=== PATIENT | female | born 1935 | race Caucasian/White ===

== ENCOUNTER 2020-07-15 08:41 | Outpatient (CLI) | payer MEDICARE, OTHER, SELFPAY ==
--- NOTE | 2020-07-15 09:06 | NM_ITS ---
WS: [id number] NUCLEAR MEDICINE WHOLE BODY BONE SCAN HISTORY: BONE PAIN/?CANCER COMPARISON: None available. TECHNIQUE: The patient was injected with 26.1 mCi of Technetium 99m HDP and serial whole-body scintig jason have been performed with anterior and posterior images. Severe bilateral degenerative changes at the knees. Increased uptake at the knee joints with bony hyp ertrophy. Additional bilateral symmetric moderate increased uptake at the ankle joints. Mild bilatera l sternoclavicular and AC joint arthritis. No increased activity with within the ribs or spine. There is mild scoliosis of the thoracolumbar spine with LEFT lumbar curvature. Normal soft tissue uptake and normal renal uptake. NM/NM bone scan whole body* [id number] IMPRESSION: 1. Changes of osteoarthritis. Most significant at the knees bilaterally. 2. Moderate osteoarthritic changes at the ankle joints, AC joints and SC joint s. 3. No metastatic disease.
== END 2020-07-15 08:42 | disposition home or self-care (01) ==
LOC: NM 08:41
PROVIDERS: PCP Family Medicine; Visit Provider Family Medicine
DX: M89.8X9 Other specified disorders of bone, unspecified site (principal); M17.0 Bilateral primary osteoarthritis of knee
CPT/HCPCS: 78306; A9561

== ENCOUNTER → 2021-03-18 09:11 | Outpatient (BNVA) | payer MEDICARE, OTHER, SELFPAY | PROVIDERS: PCP Family Medicine; Referring Provider Family Medicine; Visit Provider Specialist | DX: M25.511 Pain in right shoulder (principal); M25.512 Pain in left shoulder; M19.011 Primary osteoarthritis, right shoulder | CPT/HCPCS: 73030 ==

== ENCOUNTER 2021-06-17 06:08 | Inpatient (IN) | payer MEDICARE, OTHER, SELFPAY ==
[2021-06-17] VITALS (12 sets, daily range): BP systolic 122–161; BP diastolic 70–94; PULSE 80–101; RESP 16–26; TEMP 36.4–36.7; O2SAT 92–98; BMI 30.9
[2021-06-17] MEDS: sodium chloride 0.9% 1,000 ML 999 ML IV (06:15)
[2021-06-17 06:30] LABS: Basophils # 0.1 10^3/uL (0.0-0.1); Basophils % 1.1 %; Eosinophils # 0.1 10^3/uL (0.0-0.8); Eosinophils % 0.8 %; Hemoglobin 12.4 g/dL (11.5-15.3); Lymphocytes % 8.9 %; Mean Corpuscular Hemoglobin 28.4 pg (28.0-34.0); Mean Corpuscular Volume 91.5 fL (81-99); Mean Platelet Volume 10.1 fL (7.4-10.4); Monocytes # 0.7 10^3/uL (0.2-0.9); Monocytes % 6.1 %; Neutrophils # 9.39 10^3/uL (1.8-7.7); Neutrophils % 82.9 %; Nucleated Red Blood Cells % 0 %; Platelet Count 440 10^3/cmm (130-400); Red Blood Count 4.37 10^6/uL (4.1-5.3); Red Cell Distribution Width 17.5 % (12.1-15.1); White Blood Count 11.3 10^3/uL (4.0-10.0)
--- NOTE | 2021-06-17 06:33 | ED_ITS ---
HPI - Abdominal Pain General: Chief Complaint: Abdominal Pain Stated Complaint: N/V Time Seen by Provider: 06/17/21 06:21 History of Present Illness: HPI narrative: 86-year-old female presents emergency room with complaint of nausea vomiting that started overnight. Her last bowel movement was yesterday at noon she said it was rather large and difficult to pass. She denies any bloody bowel movements not any hematemesis. She has had problems with bowel obstructions in the past. She describes a lot of what she had overnight is like a heartburn feeling along with the vomiting. She is been given Zofran in route has not had any further vomiting tells me now her nausea is fairly well controlled. She has previously had bowel obstructions that have been treated conservatively and resolved she has not had to have any surgical intervention. No recent fever sweats chills denies chest pain shortness of breath no dysuria urgency or frequency MD elicited complaint: abdominal pain Pertinent past history: other (Bowel obstruction) Onset (ago): hour(s) Pain Consistency: constant Location: Diffuse Quality: cramping Radiation: none Exacerbating factors: nothing Relieving factors: nothing Associated Symptoms: Reports GI cramping, dyspepsia and poor appetite; Denies anorexia, belching, bloating, change in bowel habits, change in stool character, chills, coffee ground emesis, constipation, diarrhea, dysuria, excessive flatus, hematochezia, hematuria, hematemesis, fecal incontinence, loose stools, melena, nausea, syncope and vomiting Review of Systems Const: Denies: chills ENMT: Denies: throat pain, ear or mastoid pain, nasal discharge or nasal congestion Card: Denies: syncope Resp: Denies: dyspnea, productive cough or non-productive cough GI: Reports: GI cramping; Denies: nausea, vomiting, hematemesis, coffee ground emesis, diarrhea, constipation, bloating, belching, excessive flatus, fecal incontinence, change in bowel habits, change in stool character, hematochezia or melena : Denies: dysuria or hematuria Skin/Breast: Denies: rash or pruritus [facility] ED PFSH: Medical History DJD (degenerative joint disease) /Arthritis GERD (gastroesophageal reflux disease) History of small bowel obstruction Hypertension Hypothyroidism Surgical History History of appendectomy (incidental at the time of cholecystectomy) History of bladder suspension procedure History of cholecystectomy History of hernia repair X 2 (mesh used - [place], [place]) History of hysterectomy / BSO Family History Other Hypertension Social History Smoking and tobacco status: never smoked Alcohol intake: never Physical Exam Const: COMMON NORMALS: no acute distress GENERAL APPEARANCE: cooperative and comfortable ORIENTATION/CONSCIOUSNESS: Yes awake, Yes oriented to person, Yes oriented to place and Yes oriented to time HENMT: COMMON NORMALS: normocephalic, atraumatic and hearing grossly normal bilaterally HEAD & SCALP: normocephalic and atraumatic Neck/C-Spine: COMMON NORMALS: no JVD Lymph: LYMPHATIC: no lymphedema noted Resp: COMMON NORMALS: normal respiratory effort, No retractions, No use of accessory muscles and clear to auscultation bilaterally AUSCULTATION: clear to auscultation bilaterally Cardio: COMMON NORMALS: no JVD, regular rate, regular rhythm and No murmurs present (Cardio) RATE: regular rate RHYTHM: regular rhythm GI: COMMON NORMALS: Soft to palpation and No hepatosplenomegaly present AUSCULTATION: Yes Hypoactive bowel sounds present PALPATION: Yes Soft to palpation, No Tenderness to palpation present (GI), No Guarding due to palpation present (GI) and Yes No hepatosplenomegaly present Extremity: COMMON NORMALS: normal to inspection, capillary refill normal, no clubbing, cyanosis or edema, no calf tenderness and no pedal edema Neuro: SENSORIUM/ORIENTATION: Yes oriented to person, Yes oriented to place and Yes oriented to time Skin: COMMON NORMALS: no rashes or lesions noted GENERAL SKIN EXAM: no rashes or lesions noted Course Vital Signs: Vital signs: Vital Signs Temperature 97.8 F 06/17/21 12:15 Pulse Rate 96 06/17/21 12:15 Respiratory Rate 24 H 06/17/21 12:15 Blood Pressure 161/94 06/17/21 12:15 Pulse Oximetry 96 06/17/21 12:15 MDM - Abdominal Pain MDM Narrative: Medical decision making narrative: CT shows bowel obstruction.discussed with Dr. Camejo he will admit patient as per medical consult discussed Dr. Abad orders have been written. Lab Data: Labs: Lab Results 06/17/21 06/17/21 06/17/21 Range/Units 06:00 06:00 06:00 WBC 11.3 H (4.0-10.0) 10^3/ uL RBC 4.37 (4.1-5.3) 10^6/u L Hgb 12.4 (11.5-15.3) g/dL Hct 40.0 (37.0-47.0) % MCV 91.5 (81-99) fL MCH 28.4 (28.0-34.0) pg MCHC 31.0 (30.0-36.0) g/dL RDW 17.5 H (12.1-15.1) % Plt Count 440 H (130-400) 10^3/c mm MPV 10.1 (7.4-10.4) fL Neut % (Auto) 82.9 % Lymph % (Auto) 8.9 % [place] % (Auto) 6.1 % Eos % (Auto) 0.8 % Baso % (Auto) 1.1 % Neut # (Auto) 9.39 H (1.8-7.7) 10^3/u L Lymph # (Auto) 1.0 (0.8-4.8) 10^3/u L [place] # (Auto) 0.7 (0.2-0.9) 10^3/u L Eos # (Auto) 0.1 (0.0-0.8) 10^3/u L Baso # (Auto) 0.1 (0.0-0.1) 10^3/u L Nucleated RBC % (a uto) 0 % Nucleated RBCs # 0.0 /100WBC Sodium 140 (136-145) mmol/L Potassium 4.0 (3.5-5.1) mmol/L Chloride 97 L (98-107) mmol/L Carbon Dioxide 32 H (22-29) mmol/L Anion Gap 15.0 (5-19) BUN 25 H (8-23) mg/dL Creatinine 0.6 (0.5-0.9) mg/dL GFR Calculation Not Reportable Glucose 144 H (65-115) mg/dL Calculated Osmolal ity 297 H (285-295) mOsm/k g Calcium 9.6 (8.5-10.5) mg/dL Total Bilirubin 0.4 (0.15-1.2) mg/dL AST 60 H (0-32) U/L ALT 56 H (0-33) U/L Alkaline Phosphata se 87 (35-105) IU/L Total Protein 7.3 (6.6-8.7) g/dL Albumin 4.1 (3.5-5.2) g/dL Globulin 3.2 (1.3-4.6) g/dL Lipase 18 (13-60) U/L TSH 5.16 H (0.27-4.20) uIU/ mL Urine Color (Yellow) Urine Appearance (CLEAR) Urine pH (5-7) Ur Specific Gravit y (1.005-1.030) Urine Protein (Negative) Urine Glucose (UA) (Normal) Urine Ketones (Negative) Urine Blood (Negative) Urine Nitrate (Negative) Urine Bilirubin (Negative) Urine Urobilinogen (Negative) mg/dL Ur Leukocyte Silke ase (Negative) Urine RBC (0-2) /hpf Urine WBC (0-5) /hpf Ur Squamous Epith Cells (0-5) /hpf Amorphous Sediment Urine Bacteria (NONE) /hpf 07/21/21 Range/Units 07:21 WBC (4.0-10.0) 10^3/ uL RBC (4.1-5.3) 10^6/u L Hgb (11.5-15.3) g/dL Hct (37.0-47.0) % MCV (81-99) fL MCH (28.0-34.0) pg MCHC (30.0-36.0) g/dL RDW (12.1-15.1) % Plt Count (130-400) 10^3/c mm MPV (7.4-10.4) fL Neut % (Auto) % Lymph % (Auto) % [place] % (Auto) % Eos % (Auto) % Baso % (Auto) % Neut # (Auto) (1.8-7.7) 10^3/u L Lymph # (Auto) (0.8-4.8) 10^3/u L [place] # (Auto) (0.2-0.9) 10^3/u L Eos # (Auto) (0.0-0.8) 10^3/u L Baso # (Auto) (0.0-0.1) 10^3/u L Nucleated RBC % (a uto) % Nucleated RBCs # /100WBC Sodium (136-145) mmol/L Potassium (3.5-5.1) mmol/L Chloride (98-107) mmol/L Carbon Dioxide (22-29) mmol/L Anion Gap (5-19) BUN (8-23) mg/dL Creatinine (0.5-0.9) mg/dL GFR Calculation Glucose (65-115) mg/dL Calculated Osmolal ity (285-295) mOsm/k g Calcium (8.5-10.5) mg/dL Total Bilirubin (0.15-1.2) mg/dL AST (0-32) U/L ALT (0-33) U/L Alkaline Phosphata se (35-105) IU/L Total Protein (6.6-8.7) g/dL Albumin (3.5-5.2) g/dL Globulin (1.3-4.6) g/dL Lipase (13-60) U/L TSH (0.27-4.20) uIU/ mL Urine Color Yellow (Yellow) Urine Appearance Cloudy (CLEAR) Urine pH 7 (5-7) Ur Specific Gravit y 1.005 (1.005-1.030) Urine Protein Neg (Negative) Urine Glucose (UA) Norm (Normal) Urine Ketones Negative (Negative) Urine Blood Neg (Negative) Urine Nitrate Positive H (Negative) Urine Bilirubin Neg (Negative) Urine Urobilinogen 1 H (Negative) mg/dL Ur Leukocyte Silke ase Negative (Negative) Urine RBC 0-4 H (0-2) /hpf Urine WBC 10-15 H (0-5) /hpf Ur Squamous Epith Cells 5-10 H (0-5) /hpf Amorphous Sediment Not Reportable Urine Bacteria 3+ H (NONE) /hpf Discharge Plan Discharge Patient Disposition: Admitted As Inpatient Clinical Impression: Small bowel obstruction, GERD (gastroesophageal reflux disease), Morbid obesity with BMI of 40.0-44.9, adult, Hypertension Condition: Stable Prescriptions: No Action ferrous sulfate 325 mg (65 mg iron) tablet 325 mg PO BID RF: 0 lisinopril-hydrochlorothiazide 20-12.5 mg tablet 1 tab PO BID RF: 0 levothyroxine 75 mcg Tablet 75 mcg PO QAM RF: 0 [place] 7.5-325 mg Tablet 1 tab PO BEDTIME RF: 0 Prilosec OTC 20 mg Tablet,Delayed Release (Dr/Ec) 20 mg PO DAILY RF: 0 Referrals: Mk Agudelo MD [Primary Care Provider] - Coding Level of Care Code ED Infrastructure Technician for Chg Fwd Exam Comprehensive
[2021-06-17 06:58] LABS: Alanine Aminotransferase 56 U/L (0-33); Albumin Level 4.1 g/dL (3.5-5.2); Alkaline Phosphatase 87 IU/L (35-105); Aspartate Amino Transferase 60 U/L (0-32); Blood Urea Nitrogen 25 mg/dL (8-23); Calcium 9.6 mg/dL (8.5-10.5); Carbon Dioxide 32 mmol/L (22-29); Chloride 97 mmol/L (98-107); Creatinine Clr Calc Pharmacy 52.1784; Globulin 3.2 g/dL (1.3-4.6); Glucose 144 mg/dL (65-115); Osmolality Calculated 297 mOsm/kg (285-295); Sodium 140 mmol/L (136-145); Total Bilirubin 0.4 mg/dL (0.15-1.2); Total Protein 7.3 g/dL (6.6-8.7)
[2021-06-17 07:57] LABS: Add Urine Microscopic? YES; Bilirubin Urine Neg (Negative); Blood Urine Neg (Negative); Glucose Urine UA Norm (Normal); Ketones Urine Negative (Negative); Leukocyte Esterase Urine Negative (Negative); Nitrate Urine Positive (Negative); Protein Urine Neg (Negative); RBC Urine 0-4 /hpf (0-2); Specific Gravity, Urine 1.005 (1.005-1.030); Urine Appearance Cloudy (CLEAR); Urine Color Yellow (Yellow); Urobilinogen Urine 1 mg/dL (Negative); pH Urine 7 (5-7)
[2021-06-17 07:58] LABS: Add Urine Culture? Yes; Bacteria Urine 3+ /hpf
--- NOTE | 2021-06-17 08:43 | CT_ITS ---
WS: [id number] CT ABDOMEN AND PELVIS WITH CONTRAST HISTORY: Abdominal pain. Bowel obstruction history. TECHNIQUE: Imaging performed of the abdomen and pelvis with IV contrast. Single phase imaging of the abdomen. Coronal and sagittal reformats are submitted. All CT scans at [facility] use at least one of these dose optimization techniques: automated exposure control; mA and/or kV adjustment per patient size (includes targeted exams where dose is matched to clinical indication); or iterativ e reconstruction. IV CONTRAST: Omnipaque 300; 95 mL IV. Oral contrast: No DLP: 3396.48 mGy.cm COMPARISON: 01/04/2019 Lower thorax: Bilateral lower lobe granuloma. Mild enlargement of the heart. Small hiatal hernia. Liver/biliary system: Normal size with no intrahepatic dilatation. Gallbladder: Prior cholecystectomy. No bile duct dilatation. Pancreas: Normal size pancreas and pancreatic duct. No adjacent inflammation. Spleen: Normal size spleen. No mass or infarct. Adrenal glands: Normal. Right kidney: Mild cortical atrophy. No obstruction. Exophytic 1.0 cm cyst from the anterior kidney. There is a calcification in the upper abdomen of bowel but I believe this is probably a venous calcif ication and not within the ureter. Left kidney: Exophytic 8 mm cyst from the lower pole. No obstruction. Aorta: Mild atherosclerosis with no aneurysm. Lymphadenopathy: None. Free fluid: None. GI tract: Moderate dilatation of the mid to distal small bowel loops measuring up to 3.3 cm in diamet er. There is some hyperemia and changing caliber of the wall of small bowel loops in the RIGHT lower quadrant. This is closely associated with the prior surgical site and hernia repair in the RIGHT lowe r quadrant. May be some adhesions. No pneumatosis or free air at this time. No abscess. The colon is negative. Abdominal wall: Extensive prior abdominal wall hernia repair. Pelvis: Prior hysterectomy. No pelvic mass. No adenopathy. Bones: Degenerative scoliosis of the lumbar spine. CT/CT abdomen pelvis w con* [id number] IMPRESSION: 1. Moderate mid to distal small bowel obstruction. There is a changing caliber and wall thickening and hyperemia in the RIGHT lower quadrant small bowel. Thi s area of abnormality is closely associated with the prior abdominal wall herni a repair may be due to adhesions. 2. Prior hysterectomy and cholecystectomy. 3. No ascites.
[2021-06-17] MEDS: iohexol 300 mg/mL 100 mL Btl IV (09:12)
--- NOTE | 2021-06-17 10:54 | PM.CONSULT ---
Providers/Reason For Consult Consulting Physician/Specialty*: Deon Sorto MD, hospitalist Reason for Consult*: Medical management Primary Care Provider: Mk Agudelo MD History of Present Illness History of Present Illness Mckenna Nava is a 86 year old female that presents with nausea and vomiting since late last night. She has had abdominal fullness but not necessarily pain. No recent fevers. Past history of bowel obstruction that responded to conservative measurements. No fever. Denies any history of Covid, exposure or vaccine for it. She reports her last bowel movement was yesterday and hard. Does not remember any recent colonoscopy. No blood in stool, blood in emesis, or black or tarry stools. No dysuria. Review of Systems General: Reports: 10 or more systems reviewed and unremarkable except in HPI and below Const: Denies: fever(s) Eyes: Denies: change in vision ENMT: Denies: throat pain Meds/Allergies Home Medications and Allergies Home Medications Medication Instructions Recorded Confirmed Last Taken Type ferrous sulfate 325 mg (65 mg 325 mg PO DAILY 03/18/21 03/18/21 Unknown History iron) tablet hydrocodone 7.5 mg-ibuprofen 200 1 tab PO Q6H PRN 03/18/21 03/18/21 Unknown History mg tablet levothyroxine 75 mcg capsule 75 mcg PO DAILY 03/18/21 03/18/21 Unknown History lisinopril 20 1 tab PO DAILY 03/18/21 03/18/21 Unknown History mg-hydrochlorothiazide 12.5 mg tablet Allergies Allergy/AdvReac Type Severity Reaction Status Date / Time No Known Allergies Allergy Verified 06/17/21 06:21 PFSH Acute PFSH: Medical History (Updated 06/17/21 @ 11:01 by Deon Sorto MD) DJD (degenerative joint disease) GERD (gastroesophageal reflux disease) History of small bowel obstruction Hypertension Hypothyroidism Surgical History (Updated 06/17/21 @ 10:57 by Deon Sorto MD) History of appendectomy History of cholecystectomy History of hernia repair History of hysterectomy Family History (Updated 06/17/21 @ 10:57 by Deon Sorto MD) Other Hypertension Social History (Updated 06/17/21 @ 10:58 by Deon Sorto MD) Smoking and tobacco status: never smoked Alcohol intake: never Vitals/I&O/Wt Last Vital Signs Temp 97.5 F L 06/17/21 09:30 Pulse 92 06/17/21 09:30 Resp 20 H 06/17/21 09:30 BP 155/82 06/17/21 09:30 Pulse Ox 92 06/17/21 09:30 06/16/21 06/17/21 06/17/21 22:59 06:59 14:59 Intake Total 1000 / 1000 Output Total 200 / 200 Balance 800 / 800 Weight last 48 hrs Weight 81.647 kg Physical Exam Narrative: EXAM NARRATIVE: General exam is a white female in no current distress HEENT: Atraumatic and normocephalic. Oropharynx clear. Neck is supple no lymphadenopathy or thyromegaly Cardiovascular regular rate and rhythm, no murmur Lungs clear no wheezing or crackles Abdomen hypoactive sounds. Slightly full. No obvious organomegaly. exam was deferred Extremities no cyanosis clubbing or edema, cap refill brisk Skin no rash Neuro no obvious focal deficits. Data Other Data: Other data: Abdomen pelvis CT demonstrates moderate mild to distal small bowel obstruction Lactic acid not performed but ischemic bowel not suspected AST and ALT 60 and 56 with normal alk phos and bilirubin Urinalysis 10-15 whites, 0-4 reds, 5-10 squamous A&P Assessment and plan (1) Small bowel obstruction: Surgery primary Expected conservative management Hydration N.p.o. Defer NG placement to surgery Check lipase, hepatitis panel secondary to transaminitis. Status: Acute (2) GERD (gastroesophageal reflux disease): Pepcid IV Status: Acute (3) Hypertension: Hold lisinopril currently Hydralazine as needed Status: Acute (4) Hypothyroidism: Check TSH Continue levothyroxine Status: Acute Additional A&P Information Possible UTI. Rocephin while awaiting culture. Allow natural Lovenox for DVT prophylaxis Thank you for this consultation Consult Attestations Medical Necessity Statement: Will need greater than 2 midnight stay for treatment of small bowel obstruction. Time Spent in Patient Care: Greater than 35 minutes Coding Level of Care Code Acute Accident Report Clerk for Chg Fwd Diagnoses Small bowel obstruction K56.609 GERD (gastroesophageal reflux disease) K21.9 Hypertension I10 Hypothyroidism E03.9
[2021-06-17 11:26] LABS: Lipase 18 U/L (13-60); Thyroid Stimulating Hormone 5.16 uIU/mL (0.27-4.20)
[2021-06-17] MEDS: morphine 4 mg/mL SDV 1 mL IVP (12:03)
--- NOTE | 2021-06-17 12:04 | P.HP_ITS ---
Providers/Chief Complaint Admitting Physician: General Surgery Erick Christopher MD Primary Care Provider: Mk Agudelo MD Chief Complaint: N/V History of Present Illness Mckenna Nava ( Mama Jean ) is a 86 year old female who developed some epigastric pain with associated nausea and vomiting around midnight last night. She vomited multiple times at home and then contacted her children. She came to the emergency room and a CAT scan showed changes consistent with a mid small bowel obstruction. The patient says she vomited once after she got into the emergency room but has not vomited since and feels a little bit better in that regard. She had a bowel movement yesterday but it was hard and she does admit to some recent constipation. She had taken a Dulcolax tablet yesterday. She is unaware of any flatus that she has passed today. She denies any evidence of hematemesis. The patient has been hospitalized multiple times for the same set of symptoms since having a ventral hernia repair done with mesh in [place], [place] perhaps 15 or 20 years ago according to the patient. Her CAT scans have always showed mid small bowel obstructions most likely associated with the mesh in the mid abdomen/right lower quadrant. The CAT scan today shows essentially the same. The patient has always gotten better in the past with conservative management. Of note, the patient has not had a known Covid infection, but she also has not been vaccinated. Review of Systems General: Reports: 10 or more systems reviewed and unremarkable except in HPI and below Const: Denies: fever(s) Resp: Denies: dyspnea GI: Reports: abdominal pain, nausea, vomiting and constipation Medications/Allergies Home Medications Medication Instructions Recorded Confirmed Last Taken Type ferrous sulfate 325 mg (65 mg 325 mg PO DAILY 03/18/21 03/18/21 Unknown History iron) tablet lisinopril 20 1 tab PO DAILY 03/18/21 03/18/21 Unknown History mg-hydrochlorothiazide 12.5 mg tablet hydrocodone-acetaminophen [[place]] 1 tab PO BEDTIME 06/17/21 06/17/21 Unknown History levothyroxine 75 mcg PO QAM 06/17/21 06/17/21 06/16/21 History omeprazole magnesium [Prilosec OTC] 20 mg PO DAILY 06/17/21 06/17/21 Unknown History Allergies Allergy/AdvReac Type Severity Reaction Status Date / Time NSAIDS (Non-Steroidal AdvReac Stomach Verified 06/17/21 12:29 Anti-Inflamma pain PFSH Acute PFSH: Medical History DJD (degenerative joint disease) /Arthritis GERD (gastroesophageal reflux disease) History of small bowel obstruction Hypertension Hypothyroidism Surgical History History of appendectomy (incidental at the time of cholecystectomy) History of bladder suspension procedure History of cholecystectomy History of hernia repair X 2 (mesh used - [place], [place]) History of hysterectomy / BSO Family History Other Hypertension Social History (Updated 06/17/21 @ 12:34 by Erick Christopher MD) Smoking and tobacco status: never smoked Alcohol intake: never Additional social history: Resides in [facility]. Vitals/I&O/Wt Last Vital Signs Temp 97.5 F L 06/17/21 09:30 Pulse 97 06/17/21 11:47 Resp 18 06/17/21 11:47 BP 161/94 06/17/21 11:47 Pulse Ox 98 06/17/21 11:47 06/16/21 06/17/21 06/17/21 22:59 06:59 14:59 Intake Total 1000 / 1000 Output Total 200 / 200 Balance 800 / 800 Weight last 48 hrs Weight 180 kg Physical Exam Narrative: EXAM NARRATIVE: The patient was encountered in her room in the emergency department where she is waiting for a hospital room to open up. She does not appear to be in any acute distress. The pupils are equal. No carotid bruits are heard. The lungs are clear anteriorly. The heart is regular. The abdomen is morbidly obese. She has some very mild scattered tenderness but no focal tenderness anywhere. Bowel sounds are infrequent, however. No obvious masses are palpated. The extremities reveal some mild edema with some evidence of early varicosities in the right lower extremity. Neurologically the patient appears to be grossly intact. Data : 06/17/21 06:00 06/17/21 06:00 CT Abd/Pel: Radiologist's impression: CT abdomen/pelvis 06/17/2021 IMPRESSION: 1. Moderate mid to distal small bowel obstruction. There is a changing caliber and wall thickening and hyperemia in the RIGHT lower quadrant small bowel. This area of abnormality is closely associated with the prior abdominal wall hernia repair may be due to adhesions. 2. Prior hysterectomy and cholecystectomy. 3. No ascites. A&P Assessment and plan (1) Small bowel obstruction: This has been a recurring problem with the patient with multiple admissions for the same reason. These were all resolved with conservative management in the past. Right now the patient feels a little bit better. She does not want to have a nasogastric tube placed if possible. I told her that if she ends up starting to vomit again that is going to be my first recommendation and she seems to understand. At the same time, she really wants to try to avoid any surgery, as well. Status: Acute Attestations Medical Necessity Statement*: Based on my medical assessment, presenting symptoms, medical accuity and consideration of surgical therapy, I expect this patient will require treatment in the hospital for a period spanning at least 2 midnights. Coding Level of Care Code Acute Assignment Manager for [facility] Diagnoses Small bowel obstruction K56.609
[2021-06-17 14:44] LABS: Hepatitis A Antibody IgM Non-Reactive (Nonreactive); Hepatitis B Core IgM Non-Reactive (Nonreactive); Hepatitis B Surface Antigen Non-Reactive (Nonreactive); Hepatitis C Virus Antibody Non-Reactive (Nonreactive)
[2021-06-17] MEDS: enoxaparin 40 mg/0.4 mL Syringe SUBCUT (17:18)
[2021-06-17] MEDS: D5-NS 0.45% + KCL 20 mEq 20 MEQ/1,000 ML BAG 100 MEQ IV (17:19)
[2021-06-17] MEDS: cefTRIAXone 1,000 MG in sodium chloride 0.9% (plus) 50 ML 100 MG IV (18:06)
[2021-06-17] MEDS: famotidine 20 mg/2 mL INJ IVP (20:13)
--- NOTE | 2021-06-17 20:16 | PC.NURSE ---
Received bedside report from KENYA Jones. Patient resting in bed with eyes closed, easily aroused. Patient has fluids running as ordered currently. IV site patent and free from s/s of infiltration or infection presently. No distress observed.
[2021-06-18] MEDS: D5-NS 0.45% + KCL 20 mEq 20 MEQ/1,000 ML BAG 100 MEQ IV ×2 (02:28→10:05)
[2021-06-18 03:51] VITALS: BP 143/75; PULSE 79; RESP 18; TEMP 36.6; O2SAT 94
[2021-06-18 07:47] VITALS: BP 126/89; PULSE 79; RESP 16; TEMP 36.4; O2SAT 94
[2021-06-18] MEDS: famotidine 20 mg/2 mL INJ IVP (08:06)
[2021-06-18] MEDS: levothyroxine 75 mcg Tablet PO (08:06)
--- NOTE | 2021-06-18 08:16 | P.PN_ITS ---
Subjective Subjective: Interval history: Mckenna reports she is doing well. She has had several bowel movements. No abdominal pain, nausea or vomiting. Medications: Reviewed: Yes Vitals/I&O/Wt Last Vital Signs Temp 97.6 F 06/18/21 07:47 Pulse 79 06/18/21 07:47 Resp 16 06/18/21 07:47 BP 126/89 06/18/21 07:47 Pulse Ox 94 06/18/21 07:47 06/17/21 06/18/21 06/18/21 22:59 06:59 14:59 Intake Total 133.333 / 1133.333 786.667 / 1920.000 Output Total Balance 133.333 / 933.333 761.667 / 1695.000 Weight last 48 hrs Weight 81.647 kg Physical Exam Narrative: EXAM NARRATIVE: General exam is a white female in no current distress Neck is supple no lymphadenopathy or thyromegaly Cardiovascular regular rate and rhythm, no murmur Lungs clear no wheezing or crackles Abdomen positive bowel sounds. Nontender Extremities no cyanosis clubbing or edema, cap refill brisk Data : 06/17/21 06:00 06/17/21 06:00 A&P Assessment and plan (1) Small bowel obstruction: Surgery primary Expected conservative management Hydration She appears to be resolving. Lipase and hepatitis panel negative Laboratory pending for this morning I suspect the diet can be initiated Status: Acute (2) GERD (gastroesophageal reflux disease): Pepcid IV Status: Acute (3) Hypertension: Hold lisinopril currently Hydralazine as needed Status: Acute (4) Hypothyroidism: Check TSH Continue levothyroxine Status: Acute Additional A&P Information Possible UTI. Rocephin while awaiting culture. If discharged can go on a short course of p.o. medication, Ceftin 250mg BID for 3 days Allow natural Lovenox for DVT prophylaxis Thank you for this consultation Attestations Medical Necessity Statement*: As per primary Coding Level of Care Code Acute Weight Loss Sales Consultant for Chg Fwd Diagnoses Small bowel obstruction K56.609 GERD (gastroesophageal reflux disease) K21.9 Hypertension I10 Hypothyroidism E03.9
[2021-06-18 10:18] LABS: Basophils # 0.1 10^3/uL (0.0-0.1); Basophils % 1.6 %; Eosinophils # 0.2 10^3/uL (0.0-0.8); Eosinophils % 1.9 %; Hematocrit 38.8 % (37.0-47.0); Hemoglobin 11.6 g/dL (11.5-15.3); Lymphocytes # 1.1 10^3/uL (0.8-4.8); Lymphocytes % 12.6 %; Mean Corpuscular HGB Conc 29.9 g/dL (30.0-36.0); Mean Corpuscular Hemoglobin 28.6 pg (28.0-34.0); Mean Corpuscular Volume 95.6 fL (81-99); Mean Platelet Volume 9.7 fL (7.4-10.4); Monocytes # 0.8 10^3/uL (0.2-0.9); Monocytes % 8.5 %; Neutrophils % 75.1 %; Nucleated Red Blood Cells % 0 %; Platelet Count 389 10^3/cmm (130-400); Red Blood Count 4.06 10^6/uL (4.1-5.3); Red Cell Distribution Width 17.5 % (12.1-15.1); White Blood Count 8.8 10^3/uL (4.0-10.0)
[2021-06-18 10:36] LABS: Alanine Aminotransferase 52 U/L (0-33); Albumin Level 3.4 g/dL (3.5-5.2); Alkaline Phosphatase 86 IU/L (35-105); Aspartate Amino Transferase 42 U/L (0-32); Blood Urea Nitrogen 20 mg/dL (8-23); Calcium 8.5 mg/dL (8.5-10.5); Carbon Dioxide 28 mmol/L (22-29); Chloride 100 mmol/L (98-107); Creatinine Clr Calc Pharmacy 52.1784; Globulin 2.9 g/dL (1.3-4.6); Glucose 117 mg/dL (65-115); Osmolality Calculated 286 mOsm/kg (285-295); Sodium 136 mmol/L (136-145); Total Bilirubin 0.3 mg/dL (0.15-1.2); Total Protein 6.3 g/dL (6.6-8.7)
--- NOTE | 2021-06-18 10:56 | PC.CHAP ---
Pastoral Care Encounter/Spiritual Assessment Type of Contact [] Declined wrecker operator visit [] Patient/Family/Request visit [] Outpatient visit [] Follow-up visit [] Physician referral [] Code/Alert [x] Routine visit [] Staff referral [] Actively dying [] Patient sleeping [] Family support [] [] Out of room [] Palliative care [] [x] Receiving care in room [] Pre-surgical visit [] Trauma [x] Long length of stay [] ICU visit [] Other: Relational/Emotional Strength [x] Patient feels connected with others/family/visitors/staff [] Distress [] Loneliness/isolation [] Abandonment Spirituality of Patient [x] Person of Li [] Attends [facility] of their Li [x] Believes in Prayer [] Reads Bible or Spiritism materials [] There are Spiritual issues to be addressed [place] Interventions [x] Prayer [x] Active listening [x] Non-anxious presence [x] Spiritual/emotional support [] Crisis/trauma care [x] Spiritual counseling [] Bereavement support [] Provided bereavement packet [] Provided Bible/devotional materials [] Provided toy/stuffed animal, coloring book to patient or family member [] Provided Communion [] Anointing/[place] [] Salvation [x] Completed spiritual assessment [] Other: Impact on Illness or Injury [] Angry [] Fearful [x] Anxious [] Often cries [] Exhaustion [] Unable to work [] Unable to attend episcopal [] Unable to walk/stand [] Unable to read [] Unable to drive [] Unable to eat/drink [] Unable to sleep [] Unable to be with family [] Patient intubated [] Other: Summary Senor Blood in stool bowel is feeling better has a good atittude going home Time spent with patient 10 mins
--- NOTE | 2021-06-18 10:56 | PM.DCS ---
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 She has always improved with conservative management. The patient presented to the hospital on 06/17/2021 with a less than 24-hour period of obstructive symptoms. A CAT scan showed evidence of a mid small bowel obstruction. The patient refused a nasogastric tube and was admitted for management. Later that day she started passing flatus and stool. Her abdominal pain completely resolved. By the following morning she was anxious to go home. She felt like she was back to normal. Arrangements were made for her to be discharged with plans for her to follow-up with her primary care physician as needed. On a secondary note, the patient's urinalysis appeared to be a little abnormal, so the hospitalist team recommended leaving her on Ceftin 250 mg twice daily for 3 days following discharge. This was taken care of at the time of her departure. Physical Exam Narrative: EXAM NARRATIVE: The patient's abdomen is soft and nontender. Discharge Data Data Completed and Pending: Completed Studies During Hospitalization Category Date Time Status CT abdomen pelvis w con* [id number] Stat Cat Scan 06/17/21 08:43 Completed Pending at discharge Category Date Time Status Urine Culture Sta t Lab 06/17/21 07:21 Results Labs from last 24 hours 06/18/21 06/18/21 06/17/21 10:02 10:02 06:00 WBC 8.8 RBC 4.06 L Hgb 11.6 Hct 38.8 MCV 95.6 MCH 28.6 MCHC 29.9 L RDW 17.5 H Plt Count 389 MPV 9.7 Neut % (Auto) 75.1 Lymph % (Auto) 12.6 [place] % (Auto) 8.5 Eos % (Auto) 1.9 Baso % (Auto) 1.6 Neut # (Auto) 6.60 Lymph # (Auto) 1.1 [place] # (Auto) 0.8 Eos # (Auto) 0.2 Baso # (Auto) 0.1 Nucleated RBC % (a uto) 0 Nucleated RBCs # 0.0 Sodium 136 Potassium 4.0 Chloride 100 Carbon Dioxide 28 Anion Gap 12.0 BUN 20 Creatinine 0.7 GFR Calculation Not Reportable Glucose 117 H Calculated Osmolal ity 286 Calcium 8.5 Total Bilirubin 0.3 AST 42 H ALT 52 H Alkaline Phosphata se 86 Total Protein 6.3 L Albumin 3.4 L Globulin 2.9 Lipase TSH Hepatitis A IgM Ab Non-reactive Hep Bs Antigen Non-reactive Hep B Core IgM Ab Non-reactive Hepatitis C Antibo dy Non-reactive 06/17/21 06:00 WBC RBC Hgb Hct MCV MCH MCHC RDW Plt Count MPV Neut % (Auto) Lymph % (Auto) [place] % (Auto) Eos % (Auto) Baso % (Auto) Neut # (Auto) Lymph # (Auto) [place] # (Auto) Eos # (Auto) Baso # (Auto) Nucleated RBC % (a uto) Nucleated RBCs # Sodium Potassium Chloride Carbon Dioxide Anion Gap BUN Creatinine GFR Calculation Glucose Calculated Osmolal ity Calcium Total Bilirubin AST ALT Alkaline Phosphata se Total Protein Albumin Globulin Lipase 18 TSH 5.16 H Hepatitis A IgM Ab Hep Bs Antigen Hep B Core IgM Ab Hepatitis C Antibo dy Vitals: Last Vital Signs Temp 97.6 F 06/18/21 07:47 Pulse 79 06/18/21 07:47 Resp 16 06/18/21 07:47 BP 126/89 06/18/21 07:47 Pulse Ox 94 06/18/21 07:47 Discharge Plan Discharge Patient Disposition: Home Condition: Stable Prescriptions: New cefuroxime axetil 250 mg tablet 250 mg PO BID 3 Days Qty: 6 RF: 0 Continued ferrous sulfate 325 mg (65 mg iron) tablet 325 mg PO BID RF: 0 lisinopril-hydrochlorothiazide 20-12.5 mg tablet 1 tab PO BID RF: 0 levothyroxine 75 mcg Tablet 75 mcg PO QAM RF: 0 [place] 7.5-325 mg Tablet 1 tab PO BEDTIME RF: 0 Prilosec OTC 20 mg Tablet,Delayed Release (Dr/Ec) 20 mg PO DAILY RF: 0 Discharge Orders: Discharge Order (Routine); Ordered 06/18/21 Ordered By: Erick Christopher Referrals: Mk Agudelo MD [Primary Care Provider] - Discharge Diet: Advance as tolerated Discharge Activity: Increase activity as tolerated Patient Instructions: Opioid Safety Activity Restrictions/Additional Instructions: Follow-up with your primary care physician as needed. Discharge Attestations Time Spent in Discharge Care*: less than 30 min Quality Metrics Clinical Quality Measures During this hospital stay, did patient experience: None Coding Level of Care Code Acute g [facility] note Diagnoses Small bowel obstruction K56.609 GERD (gastroesophageal reflux disease) K21.9 Hypertension I10 Hypothyroidism E03.9
[2021-06-18 11:45] VITALS: BP 126/89; PULSE 79; RESP 16; TEMP 36.4; O2SAT 94
== END 2021-06-18 12:30 | disposition home or self-care (01) | DRG 389 ==
LOC: ER 12:34 → CSU 15:28
PROVIDERS: Internal Medicine; Admitting Provider Surgery; Emergency Provider Family Medicine; PCP Family Medicine; Visit Provider Surgery
DX: K56.609 Unspecified intestinal obstruction, unspecified as to partial versus complete obstruction (principal); N39.0 Urinary tract infection, site not specified; K21.9 Gastro-esophageal reflux disease without esophagitis; I10 Essential (primary) hypertension; E03.9 Hypothyroidism, unspecified; B96.20 Unspecified Escherichia coli [E. coli] as the cause of diseases classified elsewhere; Z90.710 Acquired absence of both cervix and uterus; Z87.19 Personal history of other diseases of the digestive system; Z90.49 Acquired absence of other specified parts of digestive tract; Z66 Do not resuscitate
CPT/HCPCS: 36415; 74177; 80053; 80074; 81001; 83690; 84443; 85025; 87077; 87086; 87186; 96361; 96372; 96374; 96375; 99285; J0696; J1650; J2270; J3490; J7030; Q9967

== ENCOUNTER → 2022-09-30 11:38 | Outpatient (BNVA) | payer MEDICARE, OTHER, SELFPAY | PROVIDERS: PCP Family Medicine; Visit Provider Family Medicine | DX: E03.9 Hypothyroidism, unspecified (principal); I10 Essential (primary) hypertension; M19.011 Primary osteoarthritis, right shoulder; M19.012 Primary osteoarthritis, left shoulder | CPT/HCPCS: 80053; 84443 ==

== ENCOUNTER 2023-04-08 21:58 | Inpatient (IN) | payer MEDICARE, OTHER, SELFPAY ==
[2023-04-08 21:58] VITALS: BP 123/73; PULSE 95; RESP 14; TEMP 36.7; O2SAT 93; BMI 41.8
--- NOTE | 2023-04-08 22:01 | XRR_ITS ---
PROCEDURE INFORMATION: Exam: XR Chest Exam date and time: 04/08/2023 10:04 PM Age: 87 years old Clinical indication: Pain; Chest pressure; Prior surgery; Surgery date: 6+ months; Surgery type: Gb; Patient HX: Stemi alert; Additional info: Cp TECHNIQUE: Imaging protocol: Radiologic exam of the chest. Views: 1 view. COMPARISON: CR XR chest 1V [id number] 01/07/2019 5:36 PM FINDINGS: Lungs: Lungs are clear bilaterally. Pleural spaces: No pleural effusion. No pneumothorax. Heart/Mediastinum: Stable moderate enlargement of the cardiac silhouette. Mediastinal contours are unremarkable. Vasculature: Stable vascular calcifications in the aorta. Stable tortuosity of the aorta. Bones/joints: Unremarkable for age. XR/XR chest 1V portable [id number] IMPRESSION: 1. No acute cardiopulmonary process. 2. Incidental/nonacute findings are listed in the report.
--- NOTE | 2023-04-08 22:01 | ECG_ITS ---
[facility] Test Date: 2023-04-08 Pat Name: Mckenna Nava Department: Room: [facility] Gender: Female House Superintendent: : 1935 Requested By: Lester Kwon Order Number: [id number] [place] MD: Christen Rolon M.D. Measurements Intervals [place] Rate: 96 P: 63 CA: 193 QRS: 62 QRSD: 111 T: 87 QT: 331 QTc: 418 Interpretive Statements SINUS RHYTHM MODERATE INTRAVENTRICULAR CONDUCTION DELAY [110+ ms QRS DURATION] ST ELEVATION, CONSIDER INFERIOR INJURY [MARKED ST ELEVATION W/O NORMALLY INFLECTED T-WAVE IN II/aVF] ACUTE GA Compared to ECG 07/02/2019 13:12:34 Intraventricular conduction delay now present ST (T wave) deviation now present Myocardial infarct finding now present Electronically Signed On 04-09-2023 19:18:10 CDT by Christen Rolon M.D. [id number]
[2023-04-08] MEDS: morphine 4 mg/mL SDV 1 mL 2 MG IVP (22:06)
[2023-04-08] MEDS: clopidogrel 300 mg Tablet 600 MG PO (22:06)
[2023-04-08] MEDS: ondansetron 2 mg/ML SDV 2 mL 4 MG IVP (22:06)
[2023-04-08] MEDS: heparin 5,000 unit/mL INJ 1 mL 4000 UNIT IVP (22:07)
--- NOTE | 2023-04-08 22:11 | XACV_ITS ---
Exam Room: 2 Ht: 163 cm Wt: 111 kg BSA: 2.29 m2 Gender: Female : 1935 Exam Priority: Routine Procedure(s): Procedure Description: Diagnostic procedure Procedure Description: PCI procedure Procedure Description: Drug Eluting Coronary Stent Procedure Description: PTCA Procedure Description: Coronary Angiography Jamison BUI; Diagnostic Cath Status: Emergency Diagnostic Findings * Patient was admitted with an acute inferior wall myocardial infarction. Procedure done under emergency circumstances. She is a massively obese woman so initial attempts were made to use the right radial artery. Not unexpectedly, there was tortuosity in the brachial, axillary and especially the subclavian artery to the point where the wire and catheter could not be advanced. There was a delay then in completing the procedure. The procedure was completed through the right groin. This was also a difficult entry because of her massive obesity. There is a tortuous aorta making the passage of the catheter and wires difficult as well. Finally, the patient was unwilling to hold still. * Coronary angiography reveals right coronary artery dominance. The right coronary artery is a large vessel and is occluded in the midportion. There is a significant thrombus burden. The left main is normal. The LAD is without obstruction. The circumflex is likewise without obstruction. No left ventriculogram was done because the patient was somewhat combative. PCI Status: Emergency Interventional Findings * The right coronary artery underwent angioplasty initially. Once the vessel was opened, there was a significant thrombus burden. Stenting was then carried out with a 4 x 26 mm drug-eluting stent. There was good distal flow thereafter. There was some downstream embolization. Aggrastat was used. The patient began to complain of severe back pain and was restless. I did not perform ventriculography. I will order an echo. Conclusions 1. 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 Angioplasty and stent placement with good distal flow. Normal left main, circumflex and LAD. Recommendations * Medical therapy. Interventional RX Recommendation: PCI w/o planned CABG Diagnostic RX Recommendation: PCI w/o planned CABG Anticoagulation: Heparin, Tirofiban Pressures Phase:Rest AO : 142 / 69 ( 99 ) @ 6:26:47 PM 107 / 80 ( 94 ) @ 6:26:47 PM 85 / 56 ( 70 ) @ 6:26:47 PM 83 / 65 ( 74 ) @ 6:26:47 PM 86 / 47 ( 66 ) @ 6:26:47 PM 79 / 46 ( 61 ) @ 6:26:47 PM Clinical Evaluation EBL: 5mL-10mL Procedural Details Pre-Procedure Time Out. Identified patient by full name and date of as verbalized by the patient/guarantor. Does the consent match the physician's order: N/A Emergent; Informed Consent not obtained due to time critical life threat. Accurate & Complete Informed Consent: N/A Emergent; Informed Consent not obtained due to time critical life threat. Inpatient/Outpatient History & Physical on Chart: N/A Emergent; Informed Consent not obtained due to time critical life threat. If H&P is completed, is and addenduem needed: N/A Emergent; Informed Consent not obtained due to time critical life threat; If yes, is the addendum complete: N/A Emergent; Informed Consent not obtained due to time critical life threat. Visualize and Verify Site with Patient/Guarantor: N/A. Relevant Radiology Images available: N/A Emergent; Informed Consent not obtained due to time critical life threat. Pre-op teaching completed and patient verbalized understanding. The risks, benefits, and alternatives of sedation and/or procedure were discussed by physician. The patient agrees to continue. Procedure started. Chest Pain Symptom Assessment: Atypical Angina. 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 Correct patient, site and procedure confirmed by cath team. Current diagnosis: STEMI. PERRLA. 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 Lungs clear x 5 lobes. IV Site on Arrival: 20 gauge in the right anticubital. IV Fluids: 0.9% NaCl at KVO. 0 mL infused prior to recyclable materials collector. Pre Procedural Pulses: right radial was 3+. Oxygen started at 2liters/min via nasal canula. right radial was prepped with chloroprep then draped in the usual sterile fashion. Physician notified. Baseline sample Acquired. HR: 87 BPM. Physician arrived. Physician scrubbed in. Immediate Pre-Procedure Time Out. Correct Patient: N/A Emergent; Informed Consent not obtained due to time critical life threat; Correct Procedure: N/A Emergent; Informed Consent not obtained due to time critical life threat; Correct Site: N/A Emergent; Informed Consent not obtained due to time critical life threat; Correct Patient Position: N/A Emergent; Informed Consent not obtained due to time critical life threat; Correct Supplies: N/A Emergent; Informed Consent not obtained due to time critical life threat; Dried Flammable Prep: N/A Emergent; Informed Consent not obtained due to time critical life threat; Blood Products Available: N/A;. Lidocaine 1% infiltrated to the right radial. Arterial access obtained. 6 pu[place]ican JR 4 guide catheter was inserted over the wire. echange wire out, glide wire in. Wire out, guide out. TR band applied to right wrist. right groin was prepped with chloroprep then draped in the usual sterile fashion. Lidocaine 1% infiltrated to the right groin. A TR Band was successful obtaining hemostatsis at the Right Radial artery insertion site. 6 [place] JR 4 guide catheter was inserted over the exchange wire. Multiple views taken of right coronary artery. Gervais guidewire was advanced through the guide catheter to lesion in the mid RCA. AP pads applied to pt prior to arrivial to recyclable materials collector. Balloon inserted to lesion in the mid RCA. Inflation number : 1 A TREK [id number] RX BALLOON was prepped and advanced across the Mid RCA , then inflated to 8 JEIMY for 0:21 seconds. Results checked. Balloon out. Inflation Number : 2 A ARCADIO [place] TITO 4.0X26 PATRICE -Lot Number# [id number] exp date 04/12/24 was prepped and advanced across the Mid RCA. The stent was deployed at 12 JEIMY for 0:31 seconds. Stent balloon and wire out. Admit Source: Emergency department. A 6 pu[place] JL4 catheter in over wire. Multiple views taken of left coronary artery. Catheter out. Post Procedure: Pulses reassessed and unchanged. PERRLA. 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 No VTE prophylaxis required. Medication's Wasted: Lidocaine 1% = 4 mL. Medication's Wasted: Nitro = 49.8 mg. Medication's Wasted: Other = 0.5 ml atropine. Total IV fluids: 81 mL. A Suture was successful obtaining hemostatsis at the Right Femoral artery insertion site. PCI Indication: STEMI. Post-op diagnosis: acute inferior wall KS. Complications: none. Estimated blood loss: 5mL-10mL. Responsiveness - Normal response to verbal stimuli; alert and oriented, PERRLA. Airway - Unaffected, no intervention required; spontaneous ventilation. Circulation: W/N/L, pulses unchanged. Nausea/Vomiting: No. Procedure completed. Patient transferred by bed to ICU. Arterial access obtained. Results checked. Results checked. Vital chart was stopped. Access Site Site: Right Radial artery Sheath Size: 6 Fr Hemostasis Method: TR Band Hemostasis Success: Successful Site: Right Femoral artery Sheath Size: 6 Fr Hemostasis Method: Suture Hemostasis Success: Successful Procedure Medications Start: 10:26 PM Stop: 10:26 PM Medication: Versed Amount: 1 mg Route: I.V. Start: 10:26 PM Stop: 10: PM Medication: Fentanyl Amount: 25 mcg Route: I.V. Start: 10:26 PM Stop: 10:26 PM Medication: Versed Amount: 1 mg Route: I.V. Start: 10:27 PM Stop: 10:27 PM Medication: Fentanyl Amount: 25 mcg Route: I.V. Start: 10:27 PM Stop: 10:27 PM Medication: Nitrogylcerin Amount: 200 mcg Route: I.A. Start: 10:38 PM Stop: 10:38 PM Medication: Versed 1 mg and Fentanyl 25 mcg Amount: 1 Route: I.V. Start: 10:44 PM Stop: 10:44 PM Medication: Versed Amount: 1 mg Route: I.V. Start: 10:52 PM Stop: 10:52 PM Medication: Atropine Amount: 0.5 mg Route: I.V. Start: 10:54 PM Stop: 10:54 PM Medication: Zofran (ondansetron) Amount: 4 mg Route: I.V. Start: 10:58 PM Stop: 10:58 PM Medication: Aggrastat 12.5 mg/250 mL Amount: 55 ml Route: I.C. Start: 10:59 PM Stop: 10:59 PM Medication: Aggrastat 12.5 mg/250 mL Amount: 19.8 ml/hr Route: I.C. Start: 11:01 PM Stop: 11:01 PM Medication: Fentanyl Amount: 25 mcg Route: I.V. Start: 11:03 PM Stop: 11:03 PM Medication: Versed Amount: 2 mg Route: I.V. I, the attending physician, have reviewed and verified all procedure medications. Yes, all medications given per verbal order History/Risk Factors Hypertension: Yes Dyslipidemia: No Peripheral Arterial Disease (PAD): No Myocardial Infarction (KS): No Obesity: No Tobacco Use: Never Prior Interventions PCI: No CABG: No Valve Surgery: No Report Signatures Finalized by Dr. Dontrell Gonzalez MD on 04/08/2023 11:33 PM
[2023-04-08 22:31] VITALS: BP 140/68; PULSE 93; RESP 20; O2SAT 94
--- NOTE | 2023-04-08 22:34 | W.ED.CHESTPA ---
HPI - Chest Pain General: Chief Complaint: Chest Pain Stated Complaint: STEMI Time Seen by Provider: 04/08/23 22:01 Source: patient and EMS History of Present Illness: 87-year-old female who developed a significant chest discomfort, crushing in nature, short time prior to calling EMS. On EMS arrival, twelve-lead EKG showed ST elevation in the inferior leads that is significant. She is complaining of chest discomfort, some mild shortness of breath, she is diaphoretic. She feels ill in general. She tells me she has no history of coronary disease, heart disease otherwise, she does not smoke, and is not diabetic MD complaint: chest pain Pertinent past history: other Onset (ago): minute(s) Timing of current episode: constant Prior episodes: No Onset: during rest Pain location: substernal Pain radiation: none Quality: heaviness and crushing Relieving factors: nitroglycerin Exacerbating factors: nothing Associated symptoms: Reports diaphoresis, dyspnea, nausea and sense of impending doom; Deny abdominal pain, fever(s), leg edema, palpitations or vomiting Treatment prior to arrival: aspirin and nitroglycerin Review of Systems Const: Reports: diaphoresis; Denies: fever(s) ENMT: Denies: throat pain Card: Reports: chest pain; Denies: palpitations Resp: Reports: dyspnea GI: Reports: nausea; Denies: abdominal pain or vomiting Musc: Reports: back pain PFS ED PFSH: Medical History (Updated 04/09/23 @ 01:37 by Lester Swift DO) Acute inferior myocardial infarction DJD (degenerative joint disease) /Arthritis GERD (gastroesophageal reflux disease) History of small bowel obstruction Hypertension Hypothyroidism Morbid obesity with BMI of 40.0-44.9, adult Surgical History History of appendectomy (incidental at the time of cholecystectomy) History of bladder suspension procedure History of cholecystectomy History of hernia repair X 2 (mesh used - [place], [place]) History of hysterectomy / BSO Family History Other Hypertension Social History (System 07/16/21 @ 10:38 by Edwige Galindo) Smoking and tobacco status: never smoked Alcohol intake: never Additional social history: Resides in [facility]. Physical Exam Const: GENERAL APPEARANCE: in distress, ill appearing and diaphoretic ORIENTATION/CONSCIOUSNESS: Yes awake and Yes oriented to place HENMT: COMMON NORMALS: normocephalic, atraumatic and Normal external nose present HEAD & SCALP: normocephalic and atraumatic FACE & SINUS: normal facial exam and face symmetric NOSE: Normal external nose present Eye: COMMON NORMALS: Equal, round and reactive pupils present and EOMs intact bilaterally PUPIL: Yes Equal, round and reactive pupils present Neck/C-Spine: GENERAL: Yes trachea midline Chest: CHEST: Yes Symmetrical chest wall rise Resp: COMMON NORMALS: normal respiratory effort, No retractions, No use of accessory muscles and clear to auscultation bilaterally AUSCULTATION: clear to auscultation bilaterally Cardio: COMMON NORMALS: regular rate and regular rhythm RATE: regular rate RHYTHM: regular rhythm GI: COMMON NORMALS: Normal to inspection, nondistended, normoactive bowel sounds present Extremity: COMMON NORMALS: no pedal edema Neuro: CHARAN COMA SCALE: document GCS findings Soudan coma scale eye opening: Spontaneous [place] coma scale verbal response: Orientated Charan coma scale motor response: Obey commands Charan coma scale total score: 15 SENSORIUM/ORIENTATION: Yes oriented to place SENSORY EXAM: Yes extremities (intact) Psych: COMMON NORMALS: speech normal SPEECH: Yes normal speech Skin: COMMON NORMALS: no rashes or lesions noted GENERAL SKIN EXAM: no rashes or lesions noted Course Vital Signs: Vital signs: Vital Signs Temperature 98.1 F 04/08/23 21:58 Pulse Rate 83 04/09/23 00:40 Respiratory Rate 25 H 04/09/23 00:40 Blood Pressure 121/56 04/09/23 00:40 Pulse Oximetry 96 04/09/23 00:40 Oxygen Delivery Me thod Room Air 04/09/23 00:25 MDM - Chest Pain Medical Decision Making Patient was evaluated on arrival in the emergency department. STEMI alert had been called in the field, and Transport Company Manager team, who was already in the hospital, was at bedside on her arrival. Field EKG showed inferior ST elevation with reciprocal changes anteriorly. The patient was still complaining of some chest discomfort. She had been given 324 mg of aspirin and 1 nitroglycerin in route. She was given 2 mg of morphine IV, 4 mg of Zofran, 600 mg of Plavix, and 4000 of heparin in the ER room while being prepped. Cardiology came to the bedside, agreed with EKG findings, discussed Transport Company Manager procedure with the patient, and the patient was taken directly to the Transport Company Manager from ER room 11. Lab Data 04/08/23 22:30 04/08/23 22:30 Radiology Impressions Chest X-Ray 04/08/23 22:01 IMPRESSION: 1. No acute cardiopulmonary process. 2. Incidental/nonacute findings are listed in the report. Laboratory Results WBC 11.4 10^3/uL (4.0-10.0) H 04/08/23 22:30 RBC 3.42 10^6/uL (4.1-5.3) L 04/08/23 22:30 Hgb 7.3 g/dL (11.5-15.3) L 04/08/23: Hct 26.6 % (37.0-47.0) L 04/08/23 22: MCV 77.8 fl (81-99) L 04/08/23 22: MCH 21.3 pg (28.0-34.0) L 04/08/23 22: MCHC 27.4 g/dL (30.0-36.0) L 04/08/23 22: RDW 17.3 % (12.1-15.1) H 04/08/23 22: Plt Count 483 10^3/cmm (130-400) H 04/08/23 22: MPV 9.3 fL (7.4-10.4) 04/08/23 22: Neut % (Auto) 84.2 % 04/08/23: Lymph % (Auto) 8.5 % 04/08/23 22: Barnwell % (Auto) 5.1 % 04/08/23: Eos % (Auto) 0.4 % 04/08/23: Baso % (Auto) 1.4 % 04/08/23: Neut # (Auto) 9.56 10^3/uL (1.8-7.7) H 04/08/23 22: Lymph # (Auto) 1.0 10^3/uL (0.8-4.8) 04/08/23 22: Barnwell # (Auto) 0.6 10^3/uL (0.2-0.9) 04/08/23 22:30 Eos # (Auto) 0.0 10^3/uL (0.0-0.8) 04/08/23 22:30 Baso # (Auto) 0.2 10^3/uL (0.0-0.1) H 04/08/23 22:30 Nucleated RBC % (auto) 0 % 04/08/23 22:30 Nucleated RBCs # 0.0 /100WBC 04/08/23 22:30 PT 14.40 SECONDS (12.1-14.9) 04/08/23 22:30 INR 1.09 (0.8-1.2) 04/08/23 22:30 APTT 65.5 SECONDS (23.9-36.7) H 04/08/23 22:30 Sodium 135 mmol/L (136-145) L 04/08/23 22:30 Potassium 3.8 mmol/L (3.5-5.1) 04/08/23 22:30 Chloride 97 mmol/L (98-107) L 04/08/23 22:30 Carbon Dioxide 25 mmol/L (22-29) 04/08/23 22:30 Anion Gap 16.8 (5-19) 04/08/23 22:30 BUN 28 mg/dL (8-23) H 04/08/23 22:30 Creatinine 0.8 mg/dL (0.5-0.9) 04/08/23 22:30 GFR Calculation Not Reportable 04/08/23 22: Glucose 180 mg/dL (65-115) H 04/08/23 22:30 Calculated Osmolality 290 mOsm/kg (285-295) 04/08/23 22:30 Calcium 8.8 mg/dL (8.5-10.5) 04/08/23 22:30 Total Bilirubin 0.2 mg/dL (0.15-1.2) 04/08/23 22:30 AST 28 U/L (0-32) 04/08/23 22:30 ALT 16 U/L (0-33) 04/08/23 22:30 Alkaline Phosphatase 94 U/L (35-105) 04/08/23 22:30 Troponin T Baseline 193 ng/L (0-10) H* 04/08/23 22:30 NT-Pro-B Natriuret Pep 945 pg/mL (0-450) H 04/08/23 22:30 Total Protein 7.0 g/dL (6.6-8.7) 04/08/23 22:30 Albumin 3.7 g/dL (3.5-5.2) 04/08/23 22:30 Globulin 3.3 g/dL (1.3-4.6) 04/08/23 22:30 Discharge Plan Discharge Patient Disposition: Admitted As Inpatient Admit Provider: Dontrell Gonzalez Clinical Impression: ST elevation myocardial infarction (STEMI) Condition: Serious Coding Level of Care Code ED Agricultural Produce Washer for Watson Buckley
[2023-04-08 22:38] LABS: Basophils # 0.2 10^3/uL (0.0-0.1); Basophils % 1.4 %; Eosinophils % 0.4 %; Hematocrit 26.6 % (37.0-47.0); Hemoglobin 7.3 g/dL (11.5-15.3); Lymphocytes % 8.5 %; Mean Corpuscular HGB Conc 27.4 g/dL (30.0-36.0); Mean Corpuscular Hemoglobin 21.3 pg (28.0-34.0); Mean Corpuscular Volume 77.8 fl (81-99); Mean Platelet Volume 9.3 fL (7.4-10.4); Monocytes # 0.6 10^3/uL (0.2-0.9); Monocytes % 5.1 %; Neutrophils # 9.56 10^3/uL (1.8-7.7); Neutrophils % 84.2 %; Nucleated Red Blood Cells % 0 %; Platelet Count 483 10^3/cmm (130-400); Red Blood Count 3.42 10^6/uL (4.1-5.3); Red Cell Distribution Width 17.3 % (12.1-15.1); White Blood Count 11.4 10^3/uL (4.0-10.0)
[2023-04-08 22:49] LABS: INR 1.09 (0.8-1.2)
[2023-04-08 22:50] LABS: Partial Thromboplastin Time 65.5 SECONDS (23.9-36.7)
[2023-04-08 22:56] LABS: Alanine Aminotransferase 16 U/L (0-33); Albumin Level 3.7 g/dL (3.5-5.2); Alkaline Phosphatase 94 U/L (35-105); Anion Gap 16.8 (5-19); Aspartate Amino Transferase 28 U/L (0-32); Carbon Dioxide 25 mmol/L (22-29); Globulin 3.3 g/dL (1.3-4.6); Potassium 3.8 mmol/L (3.5-5.1)
[2023-04-08 23:02] LABS: Troponin(5th) Baseline 193 ng/L (0-10)
[2023-04-08 23:15] LABS: Chloride 97 mmol/L (98-107); Glucose 180 mg/dL (65-115); Sodium 135 mmol/L (136-145)
--- NOTE | 2023-04-08 23:19 | PM.HP ---
Providers/Chief Complaint Admitting Physician: ghulam Primary Care Provider: Mk Agudelo MD Chief Complaint: STEMI History of Present Illness Mckenna Nava is a 87 year old female brought in by ambulance with chest pain. EKG revealed an acute inferior wall DE. She has a reluctant historian. Apparently has been having chest pain for 1 or 2 hours. Vital signs were stable in the emergency room. Given 4000 units of heparin, Plavix 600 mg and 1 sublingual nitroglycerin. Apparently aspirin was given in route. She went to the catheterization laboratory shortly after arrival. Review of Systems Narrative: Review of systems not obtained due to the acute nature of the illness Medications/Allergies Home Medications Medication Instructions Recorded Confirmed Last Taken Type ferrous sulfate 325 mg (65 mg 325 mg PO BID 03/18/21 09/30/22 06/16/21 History iron) tablet omeprazole magnesium 20 mg 20 mg PO DAILY 06/17/21 09/30/22 Unknown History tablet,delayed release (Prilosec OTC) hydrocodone 7.5 mg-acetaminophen 1 tab PO BEDTIME SEE PHARMACY 09/03/22 09/30/22 Unknown Rx 325 mg tablet COMMENTS-RX FILLED FOR 1 TAB QID PRN 1 month #120 tabs levothyroxine 75 mcg tablet 75 mcg PO QAM #30 tabs 09/30/22 09/30/22 Unknown Rx lisinopril 20 1 tab PO BID #60 tabs 09/30/22 09/30/22 Unknown Rx mg-hydrochlorothiazide 12.5 mg tablet prednisone 20 mg tablet 20 mg PO DAILY #8 tabs 09/30/22 09/30/22 Unknown Rx fentanyl 12 mcg/hr transdermal 1 patch transdermal Q72H 1 month 04/02/23 Unknown Rx patch #10 ea Allergies Allergy/AdvReac Type Severity Reaction Status Date / Time acetaminophen [From Tylenol] AdvReac Intermediate rash Verified 04/08/23 22:02 amitriptyline AdvReac Intermediate rash Verified 04/08/23 22:02 celecoxib [From Celebrex] AdvReac Intermediate stomach Verified 04/08/23 22:02 pain codeine AdvReac Intermediate stomach Verified 04/08/23 22:02 pain hydrocodone AdvReac Intermediate crazy Verified 04/08/23 22:02 tramadol [From Ultram] AdvReac Intermediate rash Verified 04/08/23 22:02 NSAIDS (Non-Steroidal AdvReac Stomach Verified 04/08/23 22:02 Anti-Inflamma pain PFSH Acute PFSH: Medical History (Updated 04/08/23 @ 23:22 by Dontrell Gonzalez MD) Acute inferior myocardial infarction DJD (degenerative joint disease) /Arthritis GERD (gastroesophageal reflux disease) History of small bowel obstruction Hypertension Hypothyroidism Morbid obesity with BMI of 40.0-44.9, adult Surgical History History of appendectomy (incidental at the time of cholecystectomy) History of bladder suspension procedure History of cholecystectomy History of hernia repair X 2 (mesh used - [place], [place]) History of hysterectomy / BSO Family History Other Hypertension Social History (System 07/16/21 @ 10:38 by Edwige Galindo) Smoking and tobacco status: never smoked Alcohol intake: never Additional social history: Resides in [facility]. Vitals/I&O/Wt Last Vital Signs Temp 98.1 F 04/08/23 21:58 Pulse 93 04/08/23 22:31 Resp 20 H 04/08/23 22:31 BP 140/68 04/08/23 22:31 Pulse Ox 94 04/08/23 22:31 O2 Del Method Room Air 04/08/23 21:58 Weight last 48 hrs Weight 244 lb Physical Exam Narrative: GENERAL: In general she is a massively obese woman with discomfort in her chest HEENT: Exam within normal limits. NECK: Supple without jugular vein distention. The carotid upstroke is normal without bruits. BACK: Exam normal. LUNGS: Clear. HEART: Regular rate and rhythm. ABDOMEN: Benign without organomegaly or tenderness. EXTREMITIES: No edema. NEUROLOGIC: Exam normal. SKIN: Unremarkable. Data 04/08/23 22:30 04/08/23 22:30 A&P Assessment and plan (1) Hypothyroidism: (2) Hypertension: (3) Acute inferior myocardial infarction: (4) Morbid obesity with BMI of 40.0-44.9, adult: Plan She will need to go to the catheterization laboratory immediately. We will make an attempt to use her right radial artery however at 87 years of age there is more than likely going to be enough tortuosity in the area of the subclavian that we may need to use her groin. This will create problems given her massive obesity. Attestations Medical Necessity Statement*: Admission required for management of an acute inferior wall DE. This hospital stay will cross 2 midnights. and High Time for a total of 80 minutes, includes reviewing past or interval history, examining/interviewing patient, placing orders, counseling patient/family/other support, updating patient/family/other support, discussing plan of care with staff, communicating with other healthcare providers, documenting encounter and coordinating care Diagnoses Hypothyroidism E03.9 Hypertension I10 Acute inferior myocardial infarction I21.19 Morbid obesity with BMI of 40.0-44.9, adult E66.01; Z68.41
[2023-04-08 23:27] LABS: Blood Urea Nitrogen 28 mg/dL (8-23); Calcium 8.8 mg/dL (8.5-10.5); Osmolality Calculated 290 mOsm/kg (285-295)
[2023-04-08 23:30] LABS: NT Pro B Type Natriuretic Pept 945 pg/mL (0-450)
[2023-04-08 23:39] LABS: Total Bilirubin 0.2 mg/dL (0.15-1.2)
[2023-04-08 23:40] VITALS: PULSE 88; RESP 22; O2SAT 94
[2023-04-08 23:45] VITALS: BP 108/53; PULSE 91; RESP 16; O2SAT 95
[2023-04-08 23:50] VITALS: BP 115/73; PULSE 87; RESP 13; O2SAT 94
[2023-04-08 23:55] VITALS: BP 115/73; PULSE 88; RESP 16; O2SAT 98
[2023-04-09] VITALS (29 sets, daily range): BP systolic 83–124; BP diastolic 54–93; PULSE 68–91; RESP 14–26; TEMP 36.5–36.6; O2SAT 71–99; BMI 42.6
[2023-04-09] MEDS: fentaNYL 50 mcg/mL INJ 2mL 25 MCG IVP (00:11)
[2023-04-09] MEDS: ALPRAZolam 0.5 mg Tablet 0.25 MG PO (00:11)
[2023-04-09] MEDS: temazepam 15 mg Capsule PO (00:11)
--- NOTE | 2023-04-09 00:11 | ECG_ITS ---
[facility] Test Date: 2023-04-09 Pat Name: Mckenna Nava Department: Room: [facility] Gender: Female Production Artist: : 1935 Requested By: Lester Kwon Order Number: [id number] [place] MD: Christen Rolon M.D. Measurements Intervals [place] Rate: 90 P: 80 PA: 197 QRS: 66 QRSD: 93 T: 31 QT: 343 QTc: 420 Interpretive Statements SINUS RHYTHM MARKED ST ELEVATION, CONSIDER INFERIOR INJURY [MARKED ST ELEVATION W/O NORMALLY INFLECTED T-WAVE IN II/aVF] ACUTE SD Compared to ECG 04/08/2023 22:01:51 Intraventricular conduction delay no longer present ST (T wave) deviation still present Myocardial infarct finding still present Electronically Signed On 04-09-2023 19:27:31 CDT by Christen Rolon M.D. [id number]
[2023-04-09] MEDS: sodium chloride 0.9% 1,000 ML 100 ML IV ×3 (00:12→21:35)
[2023-04-09] MEDS: metoprolol tartrate 25 mg Tablet PO ×3 (00:12→17:21)
[2023-04-09 01:46] LABS: Troponin 5 2HR 1002 ng/L (0-10); Troponin 5 2HR Delta 809 ABS# (0-10)
[2023-04-09] MEDS: fentaNYL 50 mcg/mL INJ 2mL IVP ×2 (02:41→04:02)
--- NOTE | 2023-04-09 03:18 | PC.NURSE ---
Sheath Pull 0232-pt pulled sheath partially out-Dr Gonzalez called. Orders to attempt to gain wave form and aspirate. Unable to get wave or blood return, per MD orders, aggrastat stopped and sheath pulled at 0238, pressure held for 20 minutes. Hemostatis achieved, dressed site with tegaderm and pressure bag placed. DP pulse palpable. Will monitor site per protocol.
--- NOTE | 2023-04-09 04:01 | ECG_ITS ---
[facility] Test Date: 2023-04-09 Pat Name: Mckenna Nava Department: Room: [facility] Gender: Female Package Drier: : 1935 Requested By: Lester Kwon Order Number: [id number] Alton MD: Christen Rolon M.D. Measurements Intervals [place] Rate: 74 P: 75 AR: 189 QRS: 61 QRSD: 103 T: -20 QT: 368 QTc: 410 Interpretive Statements SINUS RHYTHM WITH SINUS ARRHYTHMIA INCOMPLETE RIGHT BUNDLE BRANCH BLOCK [90+ ms QRS DURATION, TERMINAL R IN V1/V2, 40+ ms S IN I/aVL/V4/V5/V6] MARKED ST ELEVATION, CONSIDER INFERIOR INJURY [MARKED ST ELEVATION W/O NORMALLY INFLECTED T-WAVE IN II/aVF] ACUTE AL Compared to ECG 04/09/2023 00:11:01 Incomplete right bundle-branch block now present ST (T wave) deviation still present Myocardial infarct finding still present Electronically Signed On 04-09-2023 19:28:41 CDT by Christen Rolon M.D. [id number]
[2023-04-09 04:33] LABS: Basophils # 0.1 10^3/uL (0.0-0.1); Basophils % 1.2 %; Eosinophils % 0.1 %; Hematocrit 25.2 % (37.0-47.0); Hemoglobin 6.8 g/dL (11.5-15.3); Lymphocytes % 10.2 %; Mean Corpuscular Hemoglobin 21.1 pg (28.0-34.0); Mean Platelet Volume 9.3 fL (7.4-10.4); Monocytes # 0.7 10^3/uL (0.2-0.9); Monocytes % 6.6 %; Neutrophils # 8.01 10^3/uL (1.8-7.7); Neutrophils % 81.5 %; Nucleated Red Blood Cells % 0 %; Platelet Count 481 10^3/cmm (130-400); Red Blood Count 3.23 10^6/uL (4.1-5.3); Red Cell Distribution Width 17.4 % (12.1-15.1); White Blood Count 9.8 10^3/uL (4.0-10.0)
[2023-04-09 04:50] LABS: Blood Urea Nitrogen 25 mg/dL (8-23); Calcium 8.5 mg/dL (8.5-10.5); Carbon Dioxide 25 mmol/L (22-29); Chloride 99 mmol/L (98-107); Creatinine Clr Calc Pharmacy 56.5744; Glucose 117 mg/dL (65-115); Osmolality Calculated 285 mOsm/kg (285-295); Sodium 135 mmol/L (136-145)
[2023-04-09 04:53] LABS: Troponin 5 6HR Delta 1777 ng/L (0-12)
[2023-04-09 04:54] LABS: Troponin 5 6HR 1970 ng/L (0-10)
[2023-04-09] MEDS: levothyroxine 75 mcg Tablet PO (05:22)
--- NOTE | 2023-04-09 06:19 | PC.NURSE ---
TR BAND Starting removing air at 0500 0500-2 0520-2 0540-2 0600-2 0620-2 No bleeding or hematoma noted at this time.
--- NOTE | 2023-04-09 07:01 | P.PN_ITS ---
Subjective Subjective: Patient was agitated much of the night. She pulled the femoral sheath out long-term and the nurses could not advance it. The Aggrastat was then stopped and the sheath was pulled sooner than was anticipated. She complained of pain in her back. A Teague catheter was placed Hemodynamically, she has done well. Her ST segments are back down to normal. This morning she is no longer having chest pain but complains of pain all over . Her hemoglobin was 7.3 last evening. This morning it is 6.8. Her electrolytes were within normal limits. BUN and creatinine 25 and 0.7. Potassium 4.0. The baseline troponin was 193. Second troponin 1002. Third troponin 1970. Urine output 450 mL. Blood pressures are normal today 121/56. Vitals/I&O/Wt Last Vital Signs Temp 98.1 F 04/08/23 21:58 Pulse 72 04/09/23 06:00 Resp 20 H 04/09/23 04:02 BP 121/56 04/09/23 00:40 Pulse Ox 99 04/09/23 04:02 O2 Del Method Room Air 04/09/23 00:25 04/08/23 04/09/23 04/09/23 22:59 06:59 14:59 Output Total 450 / 450 Balance -450 / -450 Weight last 48 hrs Weight 233 lb Weight 244 lb Physical Exam Narrative: GENERAL: In general she looks mildly uncomfortable but is in no real distress HEENT: Exam within normal limits. NECK: Supple without jugular vein distention. The carotid upstroke is normal without bruits. BACK: Exam normal. LUNGS: Clear. HEART: Regular rate and rhythm. ABDOMEN: Benign without organomegaly or tenderness. EXTREMITIES: No edema. NEUROLOGIC: Exam normal. SKIN: Unremarkable. Urinary Catheter Management: Teague: Cath Placed During This Visit: yes Reason for Continuing Indwelling Catheter: Required Immobilization for Trauma or Surgery or Anesthesia Urinary Catheter Date of Insertion: 04/09/23 Urinary Catheter Time of Insertion: 01:15 Data 04/09/23 04:15 04/09/23 04:15 A&P Assessment and plan (1) ST elevation myocardial infarction (STEMI): (2) Acute inferior myocardial infarction: (3) Morbid obesity with BMI of 40.0-44.9, adult: (4) Hypothyroidism: (5) Hypertension: (6) Anemia: Plan Transfuse 1 unit packed red blood cells. Up in a chair today. Adjust medications. Attestations Medical Necessity Statement*: Requires hospitalization for management of acute inferior wall myocardial infarction. Hospital stay will cross 2 midnights. and High Time for a total of 50 minutes, includes reviewing past or interval history, examining/interviewing patient, placing orders, counseling patient/family/other support, updating patient/family/other support, discussing plan of care with st aff, communicating with other healthcare providers, documenting encounter and coordinating care Diagnoses ST elevation myocardial infarction (STEMI) I21.3 Acute inferior myocardial infarction I21.19 Morbid obesity with BMI of 40.0-44.9, adult E66.01; Z68.41 Hypothyroidism E03.9 Hypertension I10 Anemia D64.9
[2023-04-09] MEDS: pantoprazole DR 40 mg Tablet PO (09:54)
[2023-04-09] MEDS: clopidogrel 75 mg Tablet PO (09:54)
[2023-04-09] MEDS: ferrous sulfate EC 325 mg Tablet PO ×2 (09:54→17:21)
[2023-04-09] MEDS: predniSONE 20 mg Tablet PO (09:54)
[2023-04-09] MEDS: lisinopril 20 mg Tablet PO ×2 (09:54→17:21)
[2023-04-09] MEDS: hydroCHLOROthiazide 25 mg Tablet 12.5 MG PO ×2 (09:55→17:21)
[2023-04-09] MEDS: aspirin 81 mg EC Tablet PO (09:56)
[2023-04-09] MEDS: sodium chloride 0.9% 100 mL Bag 50 ML IV (17:19)
[2023-04-10] VITALS (35 sets, daily range): BP systolic 106–139; BP diastolic 57–93; PULSE 68–88; RESP 13–34; TEMP 36.8; O2SAT 83–99
[2023-04-10] MEDS: levothyroxine 75 mcg Tablet PO (06:26)
--- NOTE | 2023-04-10 07:43 | P.PN_ITS ---
Subjective Subjective: The patient is improved this morning. She will receive 1 unit of packed red cells yesterday. Teague catheter still in. She has had 850 mL of urine output. CBC from this morning is pending. She complains of some neck pain. Chest pain is gone. She has not yet been out of bed. Vitals/I&O/Wt Last Vital Signs Temp 98.2 F 04/10/23 04:02 Pulse 72 04/10/23 06:00 Resp 19 H 04/09/23 14:45 BP 101/78 04/09/23 14:45 Pulse Ox 98 04/09/23 21:45 O2 Del Method Oxymask 04/09/23 21:45 O2 Flow Rate 4 04/09/23 21:45 04/09/23 04/10/23 04/10/23 22:59 06:59 14:59 Intake Total 1120 / 2561.667 Output Total 625 / 625 225 / 850 Balance 495 / 1936.667 -225 / 1711.667 Weight last 48 hrs Weight 233 lb Weight 244 lb Physical Exam Narrative: GENERAL: In general she is more comfortable and is in no pain or distress HEENT: Exam within normal limits. NECK: Supple without jugular vein distention. The carotid upstroke is normal without bruits. BACK: Exam normal. LUNGS: Clear. HEART: Regular rate and rhythm. ABDOMEN: Benign without organomegaly or tenderness. EXTREMITIES: No edema. The right radial artery entry site is flat, dry without hematoma or bleeding. There is a 4+ radial pulse. The groin does not show any obvious evidence of hematoma however she has so much adipose tissue there she may have bled some especially given the fact that her hemoglobin dropped yesterday. NEUROLOGIC: Exam normal. SKIN: Unremarkable. Urinary Catheter Management: Teague: Cath Placed During This Visit: yes Reason for Continuing Indwelling Catheter: Accurate Measurement of Urinary Output in Critically Ill Patients Urinary Catheter Date of Insertion: 04/09/23 Urinary Catheter Time of Insertion: 01:15 Data 04/09/23 04:15 04/09/23 04:15 A&P Assessment and plan (1) Anemia: (2) ST elevation myocardial infarction (STEMI): (3) Acute inferior myocardial infarction: (4) Morbid obesity with BMI of 40.0-44.9, adult: (5) Hypothyroidism: (6) Hypertension: Plan I will have physical therapy come by and see her. She is going to need 1 more day of hospitalization. We need to get the Teague out. We will obtain an echo and a repeat CBC. I will adjust her medications adding a statin. I will decrease her fluid intake. According to her and her family she lives alone and wishes to go back to her own home with some support from the children. She does use a walker at home. If physical therapy ways in and suggest that she go sandie eplace else for short time that would be acceptable. She should be ready for discharge 1 where the other tomorrow. Attestations Medical Necessity Statement*: Hospitalization required for management of an acute inferior wall myocardial infarction. and High Time for a total of 40 minutes, includes reviewing past or interval history, examining/interviewing patient, placing orders, counseling patient/family/other support, updating patient/family/other support, discussing plan of care with staff, communicating with other healthcare providers, documenting encounter and coordinating care Diagnoses Anemia D64.9 ST elevation myocardial infarction (STEMI) I21.3 Acute inferior myocardial infarction I21.19 Morbid obesity with BMI of 40.0-44.9, adult E66.01; Z68.41 Hypothyroidism E03.9 Hypertension I10
--- NOTE | 2023-04-10 07:49 | USCV_ITS ---
Mckenna Nava Age: 87 Gender: F : 1935 Exam Date: 04/10/2023 15:11 Ordering Phys: Dontrell Gonzalez MD ([email or web address]) Technologist: DARREN Exam Location: [facility] Indication: cp BP: / HR: 89 Rhythm: Sinus Technical Quality: Adequate MEASUREMENTS (Male / Female) Normal Values 2D ECHO LV Diastolic Diameter PLAX 4.8 cm 4.2 - 5.9 / 3.9 - 5.3 cm LV Systolic Diameter PLAX 3.5 cm IVS Diastolic Thickness 1.0 cm 0.6 - 1.0 / 0.6 - 0.9 cm IVS Systolic Thickness 1.5 cm LVPW Diastolic Thickness 1.1 cm 0.6 - 1.0 / 0.6 - 0.9 cm LVPW Systolic Thickness 1.4 cm LVOT Diameter 2.0 cm LV Ejection Fraction 2D Teich 55.1 % LV Ejection Fraction MOD 2C 56.2 % LV Ejection Fraction 2C AL 57.6 % LA Diameter 3.6 cm IVC Diameter 2.4 cm M-MODE Aortic Annulus Diameter 3.0 cm LA Ao Ratio MM 1.4 MV E Point Septal Separation 0.9 cm DOPPLER AV Peak Velocity 161.0 cm/s LVOT Peak Velocity 132.0 cm/s AV Area Cont Eq vti 2.9 cm squared AV Area Cont Eq pk 2.7 cm squared MV Area PHT 3.5 cm squared Mitral E to A Ratio 0.9 MV E' Velocity 84.0 cm/s PV Peak Velocity 101.0 cm/s FINDINGS Left Ventricle Normal left ventricular size with a slightly diminished ejection fraction of 50%. Mild left ventricular hypertrophy. Grade I/IV diastolic dysfunction (abnormal relaxation filling pattern), normal to mildly elevated filling pressures. Mild hypokinesia of the basal septal segment. Somewhat dyskinetic basal inferior wall segment. Right Ventricle The right ventricle is normal in size and function. Right Atrium The right atrium is normal in size. Left Atrium Mildly increased left atrial size. Mitral Valve Mild mitral valve regurgitation. Aortic Valve Thickened aortic valve. Trace aortic valve regurgitation. Tricuspid Valve Trace tricuspid valve regurgitation. Estimated pulmonary artery peak systolic pressure of 40 mmHg Pulmonic Valve Pulmonic valve not well visualized. Pericardium Normal pericardium without effusion. Aorta Normal ascending aorta dimension. IVC Normal IVC dimension with <50% respiratory change of the inferior vena cava. Mean right atrial pressure of 8 mmHg CONCLUSIONS Normal left ventricular size with a slightly diminished ejection fraction of 50%. Mild left ventricular hypertrophy. Grade I/IV diastolic dysfunction (abnormal relaxation filling pattern), normal to mildly elevated filling pressures. Mild hypokinesia of the basal septal segment. Somewhat dyskinetic basal inferior wall segment. Mildly increased left atrial size. Mild mitral valve regurgitation. Thickened aortic valve. Trace aortic valve regurgitation. Trace tricuspid valve regurgitation. Trace tricuspid valve regurgitation. Estimated pulmonary artery peak systolic pressure of 40 mmHg. There is no pericardial effusion. There are no intracardiac masses. No similar previous studies are available for comparison Dr Christen Rolon MD FACC (Electronically Signed) Final Date: 10 Apr 2023 18:43 S
[2023-04-10] MEDS: ferrous sulfate EC 325 mg Tablet PO ×2 (08:12→17:01)
[2023-04-10] MEDS: metoprolol tartrate 25 mg Tablet PO ×2 (08:13→17:01)
[2023-04-10] MEDS: predniSONE 20 mg Tablet PO (08:13)
[2023-04-10] MEDS: pantoprazole DR 40 mg Tablet PO (08:13)
[2023-04-10] MEDS: lisinopril 20 mg Tablet PO ×3 (08:13→17:01)
[2023-04-10] MEDS: clopidogrel 75 mg Tablet PO (08:13)
[2023-04-10] MEDS: hydroCHLOROthiazide 25 mg Tablet 12.5 MG PO ×2 (08:13→17:02)
[2023-04-10] MEDS: aspirin 81 mg EC Tablet PO (08:13)
[2023-04-10 08:37] LABS: Basophils # 0.1 10^3/uL (0.0-0.1); Basophils % 0.9 %; Eosinophils # 0.1 10^3/uL (0.0-0.8); Eosinophils % 0.9 %; Hematocrit 28.3 % (37.0-47.0); Lymphocytes # 1.6 10^3/uL (0.8-4.8); Lymphocytes % 13.4 %; Mean Corpuscular HGB Conc 28.3 g/dL (30.0-36.0); Mean Corpuscular Volume 81.3 fl (81-99); Mean Platelet Volume 9.5 fL (7.4-10.4); Monocytes # 0.9 10^3/uL (0.2-0.9); Monocytes % 7.3 %; Neutrophils # 9.07 10^3/uL (1.8-7.7); Neutrophils % 76.7 %; Nucleated Red Blood Cells % 0 %; Platelet Count 437 10^3/cmm (130-400); Red Blood Count 3.48 10^6/uL (4.1-5.3); Red Cell Distribution Width 17.3 % (12.1-15.1); White Blood Count 11.8 10^3/uL (4.0-10.0)
[2023-04-10 09:10] LABS: Anion Gap 13.8 (5-19); Blood Urea Nitrogen 24 mg/dL (8-23); Calcium 8.6 mg/dL (8.5-10.5); Carbon Dioxide 26 mmol/L (22-29); Chloride 104 mmol/L (98-107); Creatinine Clr Calc Pharmacy 56.5744; Glucose 99 mg/dL (65-115); Osmolality Calculated 294 mOsm/kg (285-295); Potassium 3.8 mmol/L (3.5-5.1); Sodium 140 mmol/L (136-145)
[2023-04-10] MEDS: sodium chloride 0.9% 1,000 ML 100 ML IV (16:49)
[2023-04-10] MEDS: atorvastatin 40 mg Tablet PO (20:34)
[2023-04-11] VITALS (34 sets, daily range): BP systolic 88–150; BP diastolic 53–110; PULSE 66–107; RESP 14–36; TEMP 37.1; O2SAT 80–98
[2023-04-11 04:14] LABS: Basophils # 0.2 10^3/uL (0.0-0.1); Basophils % 1.2 %; Eosinophils # 0.2 10^3/uL (0.0-0.8); Eosinophils % 1.4 %; Hematocrit 29.7 % (37.0-47.0); Hemoglobin 8.2 g/dL (11.5-15.3); Lymphocytes # 1.9 10^3/uL (0.8-4.8); Lymphocytes % 14.2 %; Mean Corpuscular HGB Conc 27.6 g/dL (30.0-36.0); Mean Corpuscular Hemoglobin 22.7 pg (28.0-34.0); Mean Corpuscular Volume 82.3 fl (81-99); Mean Platelet Volume 9.6 fL (7.4-10.4); Monocytes % 7.4 %; Neutrophils # 9.87 10^3/uL (1.8-7.7); Neutrophils % 75.2 %; Nucleated Red Blood Cells % 0 %; Platelet Count 461 10^3/cmm (130-400); Red Blood Count 3.61 10^6/uL (4.1-5.3); Red Cell Distribution Width 17.6 % (12.1-15.1); White Blood Count 13.1 10^3/uL (4.0-10.0)
[2023-04-11] MEDS: levothyroxine 75 mcg Tablet PO (06:22)
--- NOTE | 2023-04-11 07:59 | PM.PN ---
Subjective Subjective: The patient is complaining of feeling tired and weak. No chest pain. No unusual shortness of breath. No fever or chills. The vitals are stable. No new symptoms. The urine was foul-smelling. Urinalysis revealed evidence of UTI. Medications: Medication Review Details: Current Medications Acetaminophen (Acetaminophen 325 Mg Tablet) 650 mg PO Q6H PRN PRN Reason: MILD PAIN Hydrocodone Bitart/Acetaminophen (Hydrocodone-Acetaminophen 7.5-325 Mg Tablet) 1 tab PO Q4H PRN PRN Reason: MODERATE PAIN Al Hydrox/Mg Hydrox/Simethicone (Bwcq-Mbx-Qgzhfnagq-Dian 30 Ml Udc) 30 ml PO Q15M PRN PRN Reason: INDIGESTION Alprazolam (Alprazolam 0.5 Mg Tablet) 0.25 mg PO TID PRN PRN Reason: ANXIETY Last Admin: 04/09/23 00:11 Dose: 0.25 mg Aspirin (Aspirin 81 Mg Ec Tablet) 81 mg PO DAILY [facility] Last Admin: 04/10/23 08:13 Dose: 81 mg Atorvastatin Calcium (Atorvastatin 40 Mg Tablet) 40 mg PO BEDTIME [facility] Last Admin: 04/10/23 20:34 Dose: 40 mg Atropine Sulfate (Atropine 1 Mg/Ml Sdv 1 Ml) 0.5 mg IVP PRN PRN PRN Reason: Symptomatic bradycardia Clopidogrel Bisulfate (Clopidogrel 75 Mg Tablet) 75 mg PO DAILY [facility] Last Admin: 04/10/23 08:13 Dose: 75 mg Ferrous Sulfate (Ferrous Sulfate Ec 325 Mg Tablet) 325 mg PO BID [facility] Last Admin: 04/10/23 17:01 Dose: 325 mg Hydrochlorothiazide (Hydrochlorothiazide 25 Mg Tablet) 12.5 mg PO BID [facility] Last Admin: 04/10/23 17:02 Dose: 12.5 mg Sodium Chloride (Sodium Chloride 0.9%) 1,000 mls @ 30 mls/hr IV .Q24H [facility] Last Infusion: 04/11/23 06:01 Dose: Infused Levothyroxine Sodium (Levothyroxine 75 Mcg Tablet) 75 mcg PO QAM [facility] Last Admin: 04/11/23 06:22 Dose: 75 mcg Lisinopril (Lisinopril 20 Mg Tablet) 20 mg PO BID [facility] Last Admin: 04/10/23 17:01 Dose: 20 mg Magnesium Hydroxide (Magnesium Hydroxide 30 Ml Udc) 30 ml PO DAILY PRN PRN Reason: CONSTIPATION Metoprolol Tartrate (Metoprolol Tartrate 25 Mg Tablet) 25 mg PO BID [facility] Last Admin: 04/10/23 17:01 Dose: 25 mg Naloxone HCl (Naloxone 0.4 Mg/Ml Sdv) 0.1 mg IVP Q2M PRN PRN Reason: RESPIRATORY RATE < 8/MIN Pantoprazole Sodium (Pantoprazole Dr 40 Mg Tablet) 40 mg PO DAILY [facility] Last Admin: 04/10/23 08:13 Dose: 40 mg Prednisone (Prednisone 20 Mg Tablet) 20 mg PO DAILY [facility] Last Admin: 04/10/23 08:13 Dose: 20 mg Temazepam (Temazepam 15 Mg Capsule) 15 mg PO BEDTIME PRN PRN Reason: INSOMNIA Last Admin: 04/09/23 00:11 Dose: 15 mg Vitals/I&O/Wt Last Vital Signs Temp 98.2 F 04/10/23 04:02 Pulse 82 04/11/23 06:00 Resp 22 H 04/11/23 04:45 BP 88/62 04/11/23 03:00 Pulse Ox 90 04/11/23 01:45 O2 Del Method Room Air 04/10/23 19:48 O2 Flow Rate 4 04/10/23 10:39 04/10/23 04/11/23 04/11/23 22:59 06:59 14:59 Intake Total 1240 / 2240 Output Total 800 / 800 650 / 1450 Balance -800 / 200 590 / 790 Physical Exam Narrative: GENERAL: The patient is alert and oriented times three. Not in any acute distress. Morbidly obese HEENT: Moderate pallor, icterus or lymphadenopathy.Oral cavity: There are no mucous membrane lesions. NECK: Trachea appears to be central. No masses noted. No JVD or thyromegaly appreciated. RESPIRATORY: Chest is symmetrical. No intercostals muscle retraction or any accessory muscle activation. There is no chest wall tenderness. Breath sounds are heard bilaterally. No rales or rhonchi heard. No evidence of any consolidation. BREASTS: Deferred. HEART: The heart sounds are normal. No S3 or S4. No significant murmurs. No pericardial rub ABDOMEN: Obese no vessel pulsations or distention. No tenderness. No organomegaly appreciated. Bowel sounds are normally heard. : Deferred. RECTAL: Deferred. LYMPHATIC: No lymphadenopathy noted in the neck. EXTREMITIES: No edema or cyanosis. No clubbing. The right groin has diffuse ecchymosis with no hematoma MUSCULOSKELETAL: No acute joint deformities or swelling SKIN: There are no significant rashes . NEUROPSYCHIATRIC: The patient is alert and oriented x3. Appears to be in a good mood. No tremors or rigidity noted. Urinary Catheter Management: Teague: Cath Placed During This Visit: yes Reason for Continuing Indwelling Catheter: Accurate Measurement of Urinary Output in Critically Ill Patients Urinary Catheter Date of Insertion: 04/09/23 Urinary Catheter Time of Insertion: 01:15 Data 04/11/23 03:53 04/10/23 08:15 Other Labs: Laboratory Last Values WBC 13.1 10^3/uL (4.0-10.0) H 04/11/23 03:53 RBC 3.61 10^6/uL (4.1-5.3) L 04/11/23 03:53 Hgb 8.2 g/dL (11.5-15.3) L 04/11/23 03:53 Hct 29.7 % (37.0-47.0) L 04/11/23 03:53 MCV 82.3 fl (81-99) 04/11/23 03:53 MCH 22.7 pg (28.0-34.0) L 04/11/23 03:53 MCHC 27.6 g/dL (30.0-36.0) L 04/11/23 03:53 RDW 17.6 % (12.1-15.1) H 04/11/23 03:53 Plt Count 461 10^3/cmm (130-400) H 04/11/23 03:53 MPV 9.6 fL (7.4-10.4) 04/11/23 03:53 Neut % (Auto) 75.2 % 04/11/23 03:53 Lymph % (Auto) 14.2 % 04/11/23 03:53 [place] % (Auto) 7.4 % 04/11/23 03:53 Eos % (Auto) 1.4 % 04/11/23 03:53 Baso % (Auto) 1.2 % 04/11/23 03:53 Neut # (Auto) 9.87 10^3/uL (1.8-7.7) H 04/11/23 03:53 Lymph # (Auto) 1.9 10^3/uL (0.8-4.8) 04/11/23 03:53 [place] # (Auto) 1.0 10^3/uL (0.2-0.9) H 04/11/23 03:53 Eos # (Auto) 0.2 10^3/uL (0.0-0.8) 04/11/23 03:53 Baso # (Auto) 0.2 10^3/uL (0.0-0.1) H 04/11/23 03:53 Nucleated RBC % (auto) 0 % 04/11/23 03:53 Nucleated RBCs # 0.0 /100WBC 04/11/23 03:53 PT 14.40 SECONDS (12.1-14.9) 04/08/23 22:30 INR 1.09 (0.8-1.2) 04/08/23 22:30 APTT 65.5 SECONDS (23.9-36.7) H 04/08/23 22:30 Sodium 140 mmol/L (136-145) 04/10/23 08:15 Potassium 3.8 mmol/L (3.5-5.1) 04/10/23 08:15 Chloride 104 mmol/L (98-107) 04/10/23 08:15 Carbon Dioxide 26 mmol/L (22-29) 04/10/23 08:15 Anion Gap 13.8 (5-19) 04/10/23 08:15 BUN 24 mg/dL (8-23) H 04/10/23 08:15 Creatinine 0.7 mg/dL (0.5-0.9) 04/10/23 08:15 GFR Calculation Not Reportable 04/10/23 08:15 Glucose 99 mg/dL (65-115) 04/10/23 08:15 Calculated Osmolality 294 mOsm/kg (285-295) 04/10/23 08:15 Calcium 8.6 mg/dL (8.5-10.5) 04/10/23 08:15 Total Bilirubin 0.2 mg/dL (0.15-1.2) 04/08/23 22:30 AST 28 U/L (0-32) 04/08/23 22:30 ALT 16 U/L (0-33) 04/08/23 22:30 Alkaline Phosphatase 94 U/L (35-105) 04/08/23 22:30 Troponin T Baseline 193 ng/L (0-10) H* 04/08/23 22:30 Troponin T 120 Minute 1002 ng/L (0-10) H 04/09/23 01:00 Delta Troponin T 809 ABS# (0-10) H* 04/09/23 01:00 Troponin T Hi Sens 6Hr 1970 ng/L (0-10) H 04/09/23 04:15 Troponin T Hi Sens 6Hr Delta 1777 ng/L (0-12) H* 04/09/23 04:15 NT-Pro-B Natriuret Pep 945 pg/mL (0-450) H 04/08/23 22:30 Total Protein 7.0 g/dL (6.6-8.7) 04/08/23 22:30 Albumin 3.7 g/dL (3.5-5.2) 04/08/23 22: Globulin 3.3 g/dL (1.3-4.6) 04/08/23 22:30 Blood Type A Positive 04/09/23 08:03 Rho(D) Type Positive 04/09/23 08:03 Antibody Screen Negative 04/09/23 08:03 Crossmatch See Detail 04/09/23 08:03 A&P Assessment and plan (1) Anemia: Appears to be stable. The etiology of the anemia is not clear. She may need further work-up. Anemia work-up as an outpatient (2) ST elevation myocardial infarction (STEMI): Status post PCI, currently seems to be stable (3) Morbid obesity with BMI of 40.0-44.9, adult: (4) Hypothyroidism: Clinically euthyroid. On thyroid replacement. (5) Hypertension: Blood pressure is slowly going up. We will try to optimize medical treatment. (6) UTI (urinary tract infection): The urine will be sent for culture and sensitivity. I may start her on Bactrim DS 1 p.o. twice daily Plan Physical therapy evaluation was done today. Patient qualifies for SNF. We will have the social service involved to make the arrangements. She may be transferred to the telemetry floor. Continue the physical therapy Attestations Medical Necessity Statement*: Patient requires continued hospital stay for close monitoring and management Coding Level of Care Code 7[address] Diagnoses [address]emia [address]64.9 ST elevation myocardial infarction (STEMI) I21.3 Morbid obesity with BMI of 40.0-44.9, adult E66.01; Z68.41 Hypothyroidism E03.9 Hypertension I10 UTI (urinary tract infection) N39.0
--- NOTE | 2023-04-11 08:30 | PC.SOCIAL ---
Pg 2 IMM Explained to pt Pg 2 IMM. No questions voiced. Provided pt a copy. Initialed, dated, & timed a copy & placed in chart.
[2023-04-11] MEDS: ferrous sulfate EC 325 mg Tablet PO ×2 (08:49→17:45)
[2023-04-11] MEDS: clopidogrel 75 mg Tablet PO (08:49)
[2023-04-11] MEDS: pantoprazole DR 40 mg Tablet PO (08:49)
[2023-04-11] MEDS: hydroCHLOROthiazide 25 mg Tablet 12.5 MG PO ×2 (08:49→17:44)
[2023-04-11] MEDS: metoprolol tartrate 25 mg Tablet PO ×2 (08:49→17:44)
[2023-04-11] MEDS: aspirin 81 mg EC Tablet PO (08:49)
[2023-04-11] MEDS: lisinopril 20 mg Tablet PO ×2 (08:49→17:44)
[2023-04-11] MEDS: predniSONE 20 mg Tablet PO (08:49)
[2023-04-11] MEDS: HYDROcodone-acetaminophen 7.5-325 mg Tablet 1 TAB PO ×3 (08:52→20:22)
[2023-04-11 13:14] LABS: Add Urine Culture? No; Bacteria Urine 3+ /hpf; Bilirubin Urine Neg (Negative); Blood Urine Neg (Negative); Glucose Urine UA Norm (Normal); Ketones Urine Negative (Negative); Leukocyte Esterase Urine 1+ (Negative); Nitrate Urine Positive (Negative); Protein Urine Neg (Negative); RBC Urine 0-4 /hpf (0-2); Specific Gravity, Urine 1.015 (1.005-1.030); Urine Appearance Hazy (CLEAR); Urine Color Yellow (Yellow); Urobilinogen Urine 1 mg/dL (Negative); WBC Urine 40-55 /hpf (0-5); pH Urine 5 (5-7)
[2023-04-11] MEDS: sulfamethoxazole-trimeth DS 160-800 mg Tablet 1 TAB PO (18:05)
[2023-04-11] MEDS: sodium chloride 0.9% 1,000 ML 30 ML IV (19:32)
[2023-04-11] MEDS: atorvastatin 40 mg Tablet PO (20:22)
[2023-04-12] VITALS (15 sets, daily range): BP systolic 98–169; BP diastolic 51–101; PULSE 64–96; RESP 14–34; O2SAT 91–97
[2023-04-12] MEDS: levothyroxine 75 mcg Tablet PO (06:40)
[2023-04-12 07:32] LABS: Anion Gap 12.7 (5-19); Blood Urea Nitrogen 21 mg/dL (8-23); Calcium 9.3 mg/dL (8.5-10.5); Carbon Dioxide 28 mmol/L (22-29); Chloride 98 mmol/L (98-107); Creatinine Clr Calc Pharmacy 56.5744; Glucose 96 mg/dL (65-115); Osmolality Calculated 283 mOsm/kg (285-295); Potassium 3.7 mmol/L (3.5-5.1); Sodium 135 mmol/L (136-145)
--- NOTE | 2023-04-12 09:17 | P.PN_ITS ---
Subjective Subjective: And is feeling okay with no chest pain or shortness of breath. Still has generalized weakness and difficulty in ambulation. Vital signs are stable Medications: Medication Review Details: Current Medications Acetaminophen (Acetaminophen 325 Mg Tablet) 650 mg PO Q6H PRN PRN Reason: MILD PAIN Hydrocodone Bitart/Acetaminophen (Hydrocodone-Acetaminophen 7.5-325 Mg Tablet) 1 tab PO Q4H PRN PRN Reason: MODERATE PAIN Last Admin: 04/11/23 20:22 Dose: 1 tab Al Hydrox/Mg Hydrox/Simethicone (Mapr-Zkb-Zaokizffz-Dian 30 Ml Udc) 30 ml PO Q15M PRN PRN Reason: INDIGESTION Alprazolam (Alprazolam 0.5 Mg Tablet) 0.25 mg PO TID PRN PRN Reason: ANXIETY Last Admin: 04/09/23 00:11 Dose: 0.25 mg Aspirin (Aspirin 81 Mg Ec Tablet) 81 mg PO DAILY [facility] Last Admin: 04/11/23 08:49 Dose: 81 mg Atorvastatin Calcium (Atorvastatin 40 Mg Tablet) 40 mg PO BEDTIME [facility] Last Admin: 04/11/23 20:22 Dose: 40 mg Atropine Sulfate (Atropine 1 Mg/Ml Sdv 1 Ml) 0.5 mg IVP PRN PRN PRN Reason: Symptomatic bradycardia Clopidogrel Bisulfate (Clopidogrel 75 Mg Tablet) 75 mg PO DAILY [facility] Last Admin: 04/11/23 08:49 Dose: 75 mg Ferrous Sulfate (Ferrous Sulfate Ec 325 Mg Tablet) 325 mg PO BID [facility] Last Admin: 04/11/23 17:45 Dose: 325 mg Hydrochlorothiazide (Hydrochlorothiazide 25 Mg Tablet) 12.5 mg PO BID [facility] Last Admin: 04/11/23 17:44 Dose: 12.5 mg Sodium Chloride (Sodium Chloride 0.9%) 1,000 mls @ 30 mls/hr IV .Q24H [facility] Last Admin: 04/11/23 19:32 Dose: 30 mls/hr Levothyroxine Sodium (Levothyroxine 75 Mcg Tablet) 75 mcg PO QAM [facility] Last Admin: 04/12/23 06:40 Dose: 75 mcg Lisinopril (Lisinopril 20 Mg Tablet) 20 mg PO BID [facility] Last Admin: 04/11/23 17:44 Dose: 20 mg Magnesium Hydroxide (Magnesium Hydroxide 30 Ml Udc) 30 ml PO DAILY PRN PRN Reason: CONSTIPATION Metoprolol Tartrate (Metoprolol Tartrate 25 Mg Tablet) 25 mg PO BID [facility] Last Admin: 04/11/23 17:44 Dose: 25 mg Naloxone HCl (Naloxone 0.4 Mg/Ml Sdv) 0.1 mg IVP Q2M PRN PRN Reason: RESPIRATORY RATE < 8/MIN Pantoprazole Sodium (Pantoprazole Dr 40 Mg Tablet) 40 mg PO DAILY [facility] Last Admin: 04/11/23 08:49 Dose: 40 mg Prednisone (Prednisone 20 Mg Tablet) 20 mg PO DAILY [facility] Last Admin: 04/11/23 08:49 Dose: 20 mg Temazepam (Temazepam 15 Mg Capsule) 15 mg PO BEDTIME PRN PRN Reason: INSOMNIA Last Admin: 04/09/23 00:11 Dose: 15 mg Trimethoprim/Sulfamethoxazole (Sulfamethoxazole-Trimeth Ds 160-800 Mg Tablet) 1 tab PO BID [facility]; Protocol Last Admin: 04/11/23 18:05 Dose: 1 tab Vitals/I&O/Wt Last Vital Signs Temp 98.7 F 04/11/23 20:00 Pulse 76 04/12/23 08:00 Resp 17 04/12/23 06:00 BP 137/79 04/12/23 06:00 Pulse Ox 94 04/12/23 08:00 O2 Del Method Room Air 04/12/23 08:00 O2 Flow Rate 2 04/11/23 22:00 04/11/23 04/12/23 04/12/23 22:59 06:59 14:59 Intake Total 340 / 940 250 / 1190 Output Total 400 / 800 300 / 1100 Balance -60 / 140 -50 / 90 Physical Exam Narrative: GENERAL: The patient is alert and oriented times three. Not in any acute distres s. Morbidly obese HEENT: No significant pallor, icterus or lymphadenopathy.Oral cavity: There are no mucous membrane lesions. NECK: Trachea appears to be central. No masses noted. No JVD or thyromegaly appreciated. RESPIRATORY: Chest is symmetrical. No intercostals muscle retraction or any accessory muscle activation. There is no chest wall tenderness. Breath sounds are heard bilaterally. No rales or rhonchi heard. No evidence of any consolidation. BREASTS: Deferred. HEART: The heart sounds are normal. No S3 or S4. Short systolic murmur in the left sternal border. No diastolic murmurs. No pericardial rub ABDOMEN: No vessel pulsations or distention. No tenderness. No organomegaly appreciated. Bowel sounds are normally heard. : Deferred. RECTAL: Deferred. LYMPHATIC: No lymphadenopathy noted in the neck. EXTREMITIES: No edema or cyanosis. No clubbing. MUSCULOSKELETAL: No acute joint deformities or swelling SKIN: There are no significant rashes or ecchymosis NEUROPSYCHIATRIC: The patient is alert and oriented x3. Appears to be in a good mood. No tremors or rigidity noted. Urinary Catheter Management: Teague: Cath Placed During This Visit: yes Reason for Continuing Indwelling Catheter: Accurate Measurement of Urinary Output in Critically Ill Patients Urinary Catheter Date of Insertion: 04/09/23 Urinary Catheter Time of Insertion: 01:15 Data 04/11/23 03:53 04/12/23 06:27 Other Labs: Laboratory Last Values WBC 13.1 10^3/uL (4.0-10.0) H 04/11/23 03:53 RBC 3.61 10^6/uL (4.1-5.3) L 04/11/23 03:53 Hgb 8.2 g/dL (11.5-15.3) L 04/11/23 03:53 Hct 29.7 % (37.0-47.0) L 04/11/23 03:53 MCV 82.3 fl (81-99) 04/11/23 03:53 MCH 22.7 pg (28.0-34.0) L 04/11/23 03:53 MCHC 27.6 g/dL (30.0-36.0) L 04/11/23 03:53 RDW 17.6 % (12.1-15.1) H 04/11/23 03:53 Plt Count 461 10^3/cmm (130-400) H 04/11/23 03:53 MPV 9.6 fL (7.4-10.4) 04/11/23 03:53 Neut % (Auto) 75.2 % 04/11/23 03:53 Lymph % (Auto) 14.2 % 04/11/23 03:53 [place] % (Auto) 7.4 % 04/11/23 03:53 Eos % (Auto) 1.4 % 04/11/23 03:53 Baso % (Auto) 1.2 % 04/11/23 03:53 Neut # (Auto) 9.87 10^3/uL (1.8-7.7) H 04/11/23 03:53 Lymph # (Auto) 1.9 10^3/uL (0.8-4.8) 04/11/23 03:53 [place] # (Auto) 1.0 10^3/uL (0.2-0.9) H 04/11/23 03:53 Eos # (Auto) 0.2 10^3/uL (0.0-0.8) 04/11/23 03:53 Baso # (Auto) 0.2 10^3/uL (0.0-0.1) H 04/11/23 03:53 Nucleated RBC % (auto) 0 % 04/11/23 03:53 Nucleated RBCs # 0.0 /100WBC 04/11/23 03:53 PT 14.40 SECONDS (12.1-14.9) 04/08/23 22:30 INR 1.09 (0.8-1.2) 04/08/23 22:30 APTT 65.5 SECONDS (23.9-36.7) H 04/08/23 22:30 Sodium 135 mmol/L (136-145) L 04/12/23 06:27 Potassium 3.7 mmol/L (3.5-5.1) 04/12/23 06:27 Chloride 98 mmol/L (98-107) 04/12/23 06:27 Carbon Dioxide 28 mmol/L (22-29) 04/12/23 06:27 Anion Gap 12.7 (5-19) 04/12/23 06:27 BUN 21 mg/dL (8-23) 04/12/23 06:27 Creatinine 0.7 mg/dL (0.5-0.9) 04/12/23 06:27 GFR Calculation Not Reportable 04/12/23 06:27 Glucose 96 mg/dL (65-115) 04/12/23 06:27 Calculated Osmolality 283 mOsm/kg (285-295) L 04/12/23 06:27 Calcium 9.3 mg/dL (8.5-10.5) 04/12/23 06:27 Total Bilirubin 0.2 mg/dL (0.15-1.2) 04/08/23 22:30 AST 28 U/L (0-32) 04/08/23 22:30 ALT 16 U/L (0-33) 04/08/23 22:30 Alkaline Phosphatase 94 U/L (35-105) 04/08/23 22:30 Troponin T Baseline 193 ng/L (0-10) H* 04/08/23 22:30 Troponin T 120 Minute 1002 ng/L (0-10) H 04/09/23 01:00 Delta Troponin T 809 ABS# (0-10) H* 04/09/23 01:00 Troponin T Hi Sens 6Hr 1970 ng/L (0-10) H 04/09/23 04:15 Troponin T Hi Sens 6Hr Delta 1777 ng/L (0-12) H* 04/09/23 04:15 NT-Pro-B Natriuret Pep 945 pg/mL (0-450) H 04/08/23 22:30 Total Protein 7.0 g/dL (6.6-8.7) 04/08/23 22:30 Albumin 3.7 g/dL (3.5-5.2) 04/08/23 22:30 Globulin 3.3 g/dL (1.3-4.6) 04/08/23 22:30 Urine Color Yellow (Yellow) 04/11/23 12:50 Urine Appearance Hazy (CLEAR) A 04/11/23 12:50 Urine pH 5 (5-7) 04/11/23 12:50 Ur Specific [place] 1.015 (1.005-1.030) 04/11/23 12:50 Urine Protein Neg (Negative) 04/11/23 12:50 Urine Glucose (UA) Norm (Normal) 04/11/23 12:50 Urine Ketones Negative (Negative) 04/11/23 12:50 Urine Blood Neg (Negative) 04/11/23 12:50 Urine Nitrate Positive (Negative) H 04/11/23 12:50 Urine Bilirubin Neg (Negative) 04/11/23 12:50 Urine Urobilinogen 1 mg/dL (Negative) H 04/11/23 12:50 Ur Leukocyte Esterase 1+ (Negative) H 04/11/23 12:50 Urine RBC 0-4 /hpf (0-2) H 04/11/23 12:50 Urine WBC 40-55 /hpf (0-5) H 04/11/23 12:50 Ur Squamous Epith Cells 10-15 /hpf (0-5) H 04/11/23 12:50 Amorphous Sediment Not Reportable 04/11/23 12:50 Urine Bacteria 3+ /hpf (NONE) H 04/11/23 12:50 Blood Type A Positive 04/09/23 08:03 Rho(D) Type Positive 04/09/23 08:03 Antibody Screen Negative 04/09/23 08:03 Crossmatch See Detail 04/09/23 08:03 A&P Assessment and plan (1) Anemia: Appears to be stable. The etiology of the anemia is not clear. She may need further work-up. Anemia work-up as an outpatient (2) ST elevation myocardial infarction (STEMI): Status post PCI, currently seems to be stable (3) Morbid obesity with BMI of 40.0-44.9, adult: (4) Hypothyroidism: Clinically euthyroid. On thyroid replacement. (5) Hypertension: Blood pressure is slowly going up. We will try to optimize medical treatment. (6) UTI (urinary tract infection): The urine relative grew E. coli. Tolerating Bactrim so far well Plan Patient got accepted to SNF. Will be discharged today Attestations Medical Necessity Statement*: Discharge to SNF today Coding Level of Care Code Acute Code for Chg Fwd Diagnoses Anemia D64.9 ST elevation myocardial infarction (STEMI) I21.3 Morbid obesity with BMI of 40.0-44.9, adult E66.01; Z68.41 Hypothyroidism E03.9 Hypertension I10 UTI (urinary tract infection) N39.0
[2023-04-12] MEDS: pantoprazole DR 40 mg Tablet PO (09:26)
[2023-04-12] MEDS: hydroCHLOROthiazide 25 mg Tablet 12.5 MG PO (09:26)
[2023-04-12] MEDS: lisinopril 20 mg Tablet PO (09:26)
[2023-04-12] MEDS: ferrous sulfate EC 325 mg Tablet PO (09:26)
[2023-04-12] MEDS: sulfamethoxazole-trimeth DS 160-800 mg Tablet 1 TAB PO (09:26)
[2023-04-12] MEDS: aspirin 81 mg EC Tablet PO (09:26)
[2023-04-12] MEDS: clopidogrel 75 mg Tablet PO (09:27)
[2023-04-12] MEDS: metoprolol tartrate 25 mg Tablet PO (09:27)
[2023-04-12] MEDS: predniSONE 20 mg Tablet PO (09:28)
--- NOTE | 2023-04-12 14:12 | PM.DCS ---
Discharge Providers Date of Admission: 04/08/23 23:49 Date of Discharge: April 12, 2023 Attending Provider at Admission: Dontrell Gonzalez MD Attending Provider at Discharge: Dr CARYN Rolon Consults: None Primary Care Provider: Mk Agudelo MD Diagnoses at Discharge Discharge Diagnosis (1) Anemia: Details from hospital stay: The hemoglobin was 7.2 at the time of admission. It dropped to 6.8 on the following day. Patient received 1 unit of blood transfusion. The level was 8.2 yesterday. She had no evidence of any active bleed. The exact reason for the anemia is not known. Patient is going to have an anemia work-up as an outpatient. Status: Acute (2) ST elevation myocardial infarction (STEMI): Details from hospital stay: The patient presented with acute inferior wall myocardial infarction. She was taken to the cardiac catheterization lab. Angiogram was performed to the right femoral artery. She was found to have occlusion of the right coronary artery at the midportion. The circumflex artery on the left anterior descending artery were found no significant obstructive lesions. LV angiogram was not performed. Patient underwent the primary angioplasty and stent placement of the RCA lesion. She had a 4 x 26 mm drug-eluting stent placement in the mid RCA. There was some downstream embolization which was treated with IV Aggrastat. Status: Acute (3) Morbid obesity with BMI of 40.0-44.9, adult: Details from hospital stay: Discussed about low-cholesterol low-fat diet Status: Acute (4) Hypothyroidism: Details from hospital stay: Patient was kept on the thyroid replacement during the hospital stay. Status: Acute (5) Hypertension: Details from hospital stay: The blood pressure status mostly in the normal range, during the hospital stay. We added metoprolol to the home medication, because of the acute HI.. She tolerated this well Status: Acute (6) UTI (urinary tract infection): Details from hospital stay: Patient was found to have a foul-smelling urine. She was started on Bactrim DS. She remained afebrile throughout the hospital course. Status: Acute Other Information Additional DC diagnoses/information: Patient was having generalized weakness during the hospital stay. We consulted the physical therapy to encourage ambulation. Because of poor ambulatory status, it was thought to be appropriate to send her to a rehab facility. Social service was consulted. She was accepted to the [facility]. Reason for Visit Reason for Visit: STEMI Brief History: This 87-year-old white female with history of hypertension, hypothyroidism, morbid obesity, degenerative joint disease, presents with a features of acute inferior wall myocardial infarction. She was evaluated by Dr. Gonzalez in the emergency room. She was subsequently taken to the cardiac arrhythmia lab. She underwent emergency angiogram through the right femoral artery. She was found to have occlusion of the right coronary artery in the midportion. Circumflex artery in the left anterior descending artery were found to have no significant obstructive lesions. She underwent primary angioplasty with stent placement of the RCA lesion. She was found to have excellent angiographic results. The distal embolization was treated with IV Aggrastat. Hospital Course Hospital Course The patient remained fairly stable throughout the hospital course. She did not have any hematoma in the right groin. She has had some ecchymosis. She was found to be anemic and the hemoglobin from 7.2 at the time of admission dropped to 6.8 on the following day. She received 1 units of packed RBC. Her hemoglobin remained around 8 throughout the rest of the hospital course. She also was found to have a UTI for which she was started on Bactrim. She remained afebrile. The urine culture grew E. coli. Physical Exam Narrative: GENERAL: The patient is alert and oriented times three. Not in any acute distress. Morbidly obese HEENT: No significant pallor, icterus or lymphadenopathy.Oral cavity: There are no mucous membrane lesions. NECK: Trachea appears to be central. No masses noted. No JVD or thyromegaly appreciated. RESPIRATORY: Chest is symmetrical. No intercostals muscle retraction or any accessory muscle activation. There is no chest wall tenderness. Breath sounds are heard bilaterally. No rales or rhonchi heard. No evidence of any consolidation. BREASTS: Deferred. HEART: The heart sounds are normal. No S3 or S4. Short systolic murmur in the left sternal border. No diastolic murmurs. No pericardial rub ABDOMEN: No vessel pulsations or distention. No tenderness. No organomegaly appreciated. Bowel sounds are normally heard. : Deferred. RECTAL: Deferred. LYMPHATIC: No lymphadenopathy noted in the neck. EXTREMITIES: No edema or cyanosis. No clubbing. MUSCULOSKELETAL: No acute joint deformities or swelling SKIN: There are no significant rashes or ecchymosis NEUROPSYCHIATRIC: The patient is alert and oriented x3. Appears to be in a good mood. No tremors or rigidity noted. Urinary Catheter Management: Teague: Cath Placed During This Visit: yes Reason for Continuing Indwelling Catheter: Accurate Measurement of Urinary Output in Critically Ill Patients Urinary Catheter Date of Insertion: 04/09/23 Urinary Catheter Time of Insertion: 01:15 Discharge Data Studies Completed and Pending Completed Studies During Hospitalization Category Date Time Status [employer] request for service Stat Exams 04/08/23 22:11 Completed XR chest 1V portable [id number] Stat Exams 04/08/23 22:01 Completed CV. echo complete* [id number] Routine Ultrasound 04/10/23 07:49 Completed Pending at discharge Category Date Time Status SARS Covid-2 Antigen Routine Lab 04/12/23 13:05 Received Radiology Impressions Chest X-Ray 04/08/23 22:01 IMPRESSION: 1. No acute cardiopulmonary process. 2. Incidental/nonacute findings are listed in the report. Laboratory Results WBC 13.1 10^3/uL (4.0-10.0) H 04/11/23 03:53 RBC 3.61 10^6/uL (4.1-5.3) L 04/11/23 03:53 Hgb 8.2 g/dL (11.5-15.3) L 04/11/23 03:53 Hct 29.7 % (37.0-47.0) L 04/11/23 03:53 MCV 82.3 fl (81-99) 04/11/23 03:53 MCH 22.7 pg (28.0-34.0) L 04/11/23 03:53 MCHC 27.6 g/dL (30.0-36.0) L 04/11/23 03:53 RDW 17.6 % (12.1-15.1) H 04/11/23 03:53 Plt Count 461 10^3/cmm (130-400) H 04/11/23 03:53 MPV 9.6 fL (7.4-10.4) 04/11/23 03:53 Neut % (Auto) 75.2 % 04/11/23 03:53 Lymph % (Auto) 14.2 % 04/11/23 03:53 [place] % (Auto) 7.4 % 04/11/23 03:53 Eos % (Auto) 1.4 % 04/11/23 03:53 Baso % (Auto) 1.2 % 04/11/23 03:53 Neut # (Auto) 9.87 10^3/uL (1.8-7.7) H 04/11/23 03:53 Lymph # (Auto) 1.9 10^3/uL (0.8-4.8) 04/11/23 03:53 [place] # (Auto) 1.0 10^3/uL (0.2-0.9) H 04/11/23 03:53 Eos # (Auto) 0.2 10^3/uL (0.0-0.8) 04/11/23 03:53 Baso # (Auto) 0.2 10^3/uL (0.0-0.1) H 04/11/23 03:53 Nucleated RBC % (auto) 0 % 04/11/23 03:53 Nucleated RBCs # 0.0 /100WBC 04/11/23 03:53 PT 14.40 SECONDS (12.1-14.9) 04/08/23 22:30 INR 1.09 (0.8-1.2) 04/08/23 22:30 APTT 65.5 SECONDS (23.9-36.7) H 04/08/23 22:30 Sodium 135 mmol/L (136-145) L 04/12/23 06:27 Potassium 3.7 mmol/L (3.5-5.1) 04/12/23 06:27 Chloride 98 mmol/L (98-107) 04/12/23 06:27 Carbon Dioxide 28 mmol/L (22-29) 04/12/23 06:27 Anion Gap 12.7 (5-19) 04/12/23 06:27 BUN 21 mg/dL (8-23) 04/12/23 06:27 Creatinine 0.7 mg/dL (0.5-0.9) 04/12/23 06:27 GFR Calculation Not Reportable 04/12/23 06:27 Glucose 96 mg/dL (65-115) 04/12/23 06:27 Calculated Osmolality 283 mOsm/kg (285-295) L 04/12/23 06:27 Calcium 9.3 mg/dL (8.5-10.5) 04/12/23 06:27 Total Bilirubin 0.2 mg/dL (0.15-1.2) 04/08/23 22:30 AST 28 U/L (0-32) 04/08/23 22:30 ALT 16 U/L (0-33) 04/08/23 22:30 Alkaline Phosphatase 94 U/L (35-105) 04/08/23 22:30 Troponin T Baseline 193 ng/L (0-10) H* 04/08/23 22:30 Troponin T 120 Minute 1002 ng/L (0-10) H 04/09/23 01:00 Delta Troponin T 809 ABS# (0-10) H* 04/09/23 01:00 Troponin T Hi Sens 6Hr 1970 ng/L (0-10) H 04/09/23 04:15 Troponin T Hi Sens 6Hr Delta 1777 ng/L (0-12) H* 04/09/23 04:15 NT-Pro-B Natriuret Pep 945 pg/mL (0-450) H 04/08/23 22:30 Total Protein 7.0 g/dL (6.6-8.7) 04/08/23 22:30 Albumin 3.7 g/dL (3.5-5.2) 04/08/23 22:30 Globulin 3.3 g/dL (1.3-4.6) 04/08/23 22:30 Urine Color Yellow (Yellow) 04/11/23 12:50 Urine Appearance Hazy (CLEAR) A 04/11/23 12:50 Urine pH 5 (5-7) 04/11/23 12:50 Ur Specific [place] 1.015 (1.005-1.030) 04/11/23 12:50 Urine Protein Neg (Negative) 04/11/23 12:50 Urine Glucose (UA) Norm (Normal) 04/11/23 12:50 Urine Ketones Negative (Negative) 04/11/23 12:50 Urine Blood Neg (Negative) 04/11/23 12:50 Urine Nitrate Positive (Negative) H 04/11/23 12:50 Urine Bilirubin Neg (Negative) 04/11/23 12:50 Urine Urobilinogen 1 mg/dL (Negative) H 04/11/23 12:50 Ur Leukocyte Esterase 1+ (Negative) H 04/11/23 12:50 Urine RBC 0-4 /hpf (0-2) H 04/11/23 12:50 Urine WBC 40-55 /hpf (0-5) H 04/11/23 12:50 Ur Squamous Epith Cells 10-15 /hpf (0-5) H 04/11/23 12:50 Amorphous Sediment Not Reportable 04/11/23 12:50 Urine Bacteria 3+ /hpf (NONE) H 04/11/23 12:50 Blood Type A Positive 04/09/23 08:03 Rho(D) Type Positive 04/09/23 08:03 Antibody Screen Negative 04/09/23 08:03 Crossmatch See Detail 04/09/23 08:03 Additional Data from Hospital Stay The echocardiogram done on 04/10/2023 ?Normal left ventricular size with a slightly diminished ejection ?fraction of 50%. Mild left ventricular hypertrophy. Grade I/IV ?diastolic dysfunction (abnormal relaxation filling pattern), ?normal to mildly elevated filling pressures.? Mild hypokinesia ?of the basal septal segment.? Somewhat dyskinetic basal inferior ?wall segment.? ?Mildly increased left atrial size. ?Mild mitral valve regurgitation. ?Thickened aortic valve. Trace aortic valve regurgitation. ?Trace tricuspid valve regurgitation. ?Trace tricuspid valve regurgitation.? Estimated pulmonary artery ?peak systolic pressure of 40 mmHg. ?There is no pericardial effusion. ?There are no intracardiac masses. ?No similar previous studies are available for comparison Cardiac catheterization lab note by Dr. Gonzalez Diagnostic Cath Status: ? ? Emergency Diagnostic Findings ? * Patient was admitted with an acute inferior wall myocardial infarction. Procedure done under emergency circumstances.? She is a massively obese woman so initial attempts were made to use the right radial artery.? Not unexpectedly, there was tortuosity in the brachial, axillary and especially the subclavian artery to the point where the wire and catheter could not be advanced.? There was a delay then in completing the procedure.? The procedure was completed through the right groin.? This was also a difficult entry because of her massive obesity.? There is a tortuous aorta making the passage of the catheter and wires difficult as well.? Finally, the patient was unwilling to hold still. ? * Coronary angiography reveals right coronary artery dominance.? The right coronary artery is a large vessel and is occluded in the midportion.? There is a significant thrombus burden.? The left main is normal.? The LAD is without obstruction.? The circumflex is likewise without obstruction.? No left ventriculogram was done because the patient was somewhat combative. PCI Status: ? ? Emergency Interventional Findings ? * The right coronary artery underwent angioplasty initially.? Once the vessel was opened, there was a significant thrombus burden.? Stenting was then carried out with a 4 x 26 mm drug-eluting stent.? There was good distal flow thereafter.? There was some downstream embolization.? Aggrastat was used.? The patient began to complain of severe back pain and was restless.? I did not perform ventriculography.? I will order an echo. Conclusions ? 1. Acute inferior wall myocardial infarction with occlusion of the right coronary artery.? Angioplasty and stent placement with good distal flow. Normal left main, circumflex and LAD. Recommendations ? * Medical therapy. Interventional RX Recommendation: ? ? PCI w/o planned CABG Diagnostic RX Recommendation: ? ? PCI w/o planned CABG Anticoagulation: ? ? Heparin, Tirofiban Procedures Performed Left heart catheterization with coronary angiogram Echocardiogram Urine culture and sensitivity Vitals Last Vital Signs Temp 98.7 F 04/11/23 20:00 Pulse 65 04/12/23 12:00 Resp 19 H 04/12/23 12:00 BP 98/51 04/12/23 12:00 Pulse Ox 94 04/12/23 12:00 O2 Del Method Room Air 04/12/23 08:00 O2 Flow Rate 2 04/11/23 22:00 Discharge Plan Discharge Patient Disposition: Xfer SNF Condition: Serious Prescriptions: New sulfamethoxazole-trimethoprim 800-160 mg Tablet 1 tab PO BID Qty: 18 0RF pantoprazole 40 mg Tablet,Delayed Release (Dr/Ec) 40 mg PO DAILY Qty: 30 0RF ferrous sulfate 325 mg (65 mg iron) Tablet,Delayed Release (Dr/Ec) 325 mg PO BID Qty: 30 0RF metoprolol tartrate 25 mg Tablet 25 mg PO BID Qty: 60 0RF atorvastatin 40 mg Tablet 40 mg PO BEDTIME Qty: 30 0RF clopidogrel 75 mg Tablet 75 mg PO DAILY Qty: 30 0RF aspirin 81 mg Tablet,Delayed Release (Dr/Ec) 81 mg PO DAILY Qty: 30 0RF Continued levothyroxine 75 mcg tablet 75 mcg PO QAM Qty: 30 11RF lisinopril-hydrochlorothiazide 20-12.5 mg tablet 1 tab PO BID Qty: 60 12RF hydrocodone-acetaminophen 7.5-325 mg tablet 1 tab PO BEDTIME 30 Days Qty: 120 0RF Rx Instructions: SOMETIMES WILL TAKES ONE TAB IN AM AND 1 TAB HS fentanyl 12 mcg/hr patch 72 hour 1 patch transdermal Q72H 30 Days Qty: 10 0RF Discontinued omeprazole magnesium [Prilosec OTC] 20 mg Tablet,Delayed Release (Dr/Ec) 20 mg PO DAILY Discharge Orders: Discharge Order (Routine); Ordered 04/12/23 Ordered By: Christen Rolon Referrals: [facility] [Outside] Dontrell Gonzalez MD [Physician] - 1 month Janell Butt FNP [Nurse Practitioner] - 2 weeks Mk Agudelo MD [Primary Care Provider] - 1 week Discharge Diet: Advance as tolerated Discharge Activity: Increase activity as tolerated Patient Instructions: Sulfamethoxazole/Trimethoprim (By mouth), Iron Supplements (By mouth), Metoprolol (By mouth), Aspirin (By mouth), Atorvastatin (By mouth), Clopidogrel (By mouth), Pantoprazole (By mouth), Low-Sodium Diet (DC), Opioid Safety Activity Restrictions/Additional Instructions: Physical therapy in the group home, as per evaluation Appointment at the [facility] in 2 weeks with Janell under Appointment with Dr. Mk Agudelo in [address] Gonzalez in 4 weeks Patient's Health Concerns: Patient's ambulatory status is very poor . She requires physical therapy for ambulation. Plan of Treatment: Patient needs to continue the medications as mentioned above. She requires follow-up of the UTI She requires anemia work-up as an outpatient. I discussed the patient's condition with the Dr. Agudelo, the primary care provider. Dr. Springer will be seeing the patient in a week and will discuss about further management plans. The patient condition and her treatment plan also was discussed with her daughter Discharge Attestations Time Spent in Discharge Care*: greater than 30 min Quality Metrics Clinical Quality Measures [ No reported AMI, CVA or VTE this stay] Coding Level of Care Code 38326 Total time (in minutes) for Discharge: [address] elevation myocardial infarction (STEMI) I21.3 Morbid obesity with BMI of 40.0-44.9, adult E66.01; Z68.41 Hypothyroidism E03.9 Hypertension I10 UTI (urinary tract infection) N39.0
[2023-04-12 14:13] LABS: SARS Covid-2 Antigen negative (Negative)
--- NOTE | 2023-04-12 15:43 | PC.NURSE ---
Report called to [facility], family at bedside, half-way transport left with patient at this time
== END 2023-04-12 15:45 | disposition skilled nursing facility (03) | DRG 247 ==
LOC: ER 22:13 → CCL 22:13 → ICU 23:50
PROVIDERS: Internal Medicine Cardiovascular Disease; Student in an Organized Health Care Education/Training Program; Admitting Provider Internal Medicine Cardiovascular Disease; Emergency Provider Emergency Medicine; PCP Family Medicine; Visit Provider Internal Medicine Cardiovascular Disease
PROC: 4A023N7 Measurement of Cardiac Sampling and Pressure, Left Heart, Percutaneous Approach (ICD-10-PCS; principal; 2023-04-08 22:30)
PROC: 4A023N7 Measurement of Cardiac Sampling and Pressure, Left Heart, Percutaneous Approach (ICD-10-PCS; 2023-04-08 22:30)
DX: I21.19 ST elevation (STEMI) myocardial infarction involving other coronary artery of inferior wall (principal); N39.0 Urinary tract infection, site not specified; Z68.41 Body mass index [BMI] 40.0-44.9, adult; M19.90 Unspecified osteoarthritis, unspecified site; K21.9 Gastro-esophageal reflux disease without esophagitis; I10 Essential (primary) hypertension; E66.01 Morbid (severe) obesity due to excess calories; D64.9 Anemia, unspecified; B96.20 Unspecified Escherichia coli [E. coli] as the cause of diseases classified elsewhere
CPT/HCPCS: 36415; 36430; 51702; 71045; 80048; 80053; 81001; 83880; 84484; 85025; 85610; 85730; 86850; 86900; 86920; 87426; 93005; 93306; 93454; 96365; 96367; 96374; 96375; 97110; 97116; 97161; 99152; 99153; 99285; C1725; C1769; C1874; C1887; C1894; C9600; J0461; J1644; J2250; J2270; J2405; J3010; J3490; J7030; J7512; P9016; Q9967

== ENCOUNTER → 2023-05-03 15:45 | Outpatient (BNVA) | payer MEDICARE, OTHER, SELFPAY | PROVIDERS: PCP Family Medicine; Visit Provider Nurse Practitioner Family | DX: I21.3 ST elevation (STEMI) myocardial infarction of unspecified site (principal); I21.19 ST elevation (STEMI) myocardial infarction involving other coronary artery of inferior wall | CPT/HCPCS: 71046; 99214 ==

== ENCOUNTER → 2023-06-07 11:42 | Outpatient (BNVA) | payer MEDICARE, OTHER, SELFPAY | PROVIDERS: PCP Family Medicine; Visit Provider Internal Medicine Cardiovascular Disease | DX: I21.19 ST elevation (STEMI) myocardial infarction involving other coronary artery of inferior wall (principal); D64.9 Anemia, unspecified; E66.01 Morbid (severe) obesity due to excess calories; Z68.41 Body mass index [BMI] 40.0-44.9, adult; I10 Essential (primary) hypertension | CPT/HCPCS: 99213 ==

== ENCOUNTER → 2023-07-11 11:37 | Outpatient (BNVA) | payer MEDICARE, OTHER, SELFPAY | PROVIDERS: PCP Family Medicine; Visit Provider Internal Medicine Cardiovascular Disease | DX: I25.2 Old myocardial infarction (principal); D64.9 Anemia, unspecified; E66.01 Morbid (severe) obesity due to excess calories; Z68.41 Body mass index [BMI] 40.0-44.9, adult; I10 Essential (primary) hypertension | CPT/HCPCS: 99213 ==

== ENCOUNTER → 2023-12-21 11:14 | Outpatient (BNVA) | payer MEDICARE, OTHER, MEDICAID, SELFPAY | PROVIDERS: PCP Family Medicine; Visit Provider Internal Medicine Cardiovascular Disease | DX: I10 Essential (primary) hypertension (principal); E66.01 Morbid (severe) obesity due to excess calories; Z68.41 Body mass index [BMI] 40.0-44.9, adult; D64.9 Anemia, unspecified; I25.2 Old myocardial infarction | CPT/HCPCS: 99213 ==

== ENCOUNTER 2024-03-03 20:22 | Emergency (ER) | payer MEDICARE, OTHER, MEDICAID, SELFPAY ==
[2024-03-03 20:25] VITALS: BP 134/60; PULSE 81; RESP 18; TEMP 36.4; O2SAT 99
--- NOTE | 2024-03-03 20:32 | ED_ITS ---
HPI - Chest Pain 2 General: Chief Complaint: Shortness of Breath/Dyspnea Stated Complaint: SHOULDER/RIB PAIN Time Seen by Provider: 03/03/24 20:27 History of Present Illness: 88-year-old female that is a resident at [facility] correction was brought in by EMS for concerns of respiratory difficulty. EMS reports that on arrival patient had a pulse oxygen at 78%. Patient was adjusted in bed and set up and pulse oxygen came up to 99% on room air. Patient had been given a breathing treatment about an hour prior to arrival by EMS. Patient has been being treated for pneumonia. Patient has a history of coronary artery disease, hypothyroidism, anemia, GERD, obesity. Associated symptoms: Reports dyspnea Review of Systems 2 General: Reports: 10 or more systems reviewed and unremarkable except in HPI and below Resp: Reports: dyspnea PFSH ED 2 PFSH: Medical History Anemia Acute inferior myocardial infarction GERD (gastroesophageal reflux disease) History of small bowel obstruction Hypothyroidism DJD (degenerative joint disease) /Arthritis Hypertension Morbid obesity with BMI of 40.0-44.9, adult Surgical History History of bladder suspension procedure History of appendectomy (incidental at the time of cholecystectomy) History of hernia repair X 2 (mesh used - [place], [place]) History of cholecystectomy History of hysterectomy / BSO Family History Other Hypertension Social History Smoking and tobacco/nicotine status: never used tobacco/nicotine Alcohol intake: never Additional social history: Resides in [facility]. Physical Exam 2 Const: COMMON NORMALS: alert HENMT: COMMON NORMALS: normocephalic HEAD & SCALP: normocephalic Neck/C-Spine: COMMON NORMALS: full ROM Chest: COMMONS NORMALS: normal inspection of the chest Resp: COMMON NORMALS: normal respiratory effort and clear to auscultation bilaterally AUSCULTATION: clear to auscultation bilaterally Cardio: COMMON NORMALS: regular rate RATE: regular rate GI: COMMON NORMALS: non-tender Back/Pelvis: COMMON NORMALS: thoracic and lumbar spine normal to inspection Extremity: COMMON NORMALS: full ROM Neuro: SENSORIUM/ORIENTATION: Yes alert Skin: COMMON NORMALS: turgor normal GENERAL SKIN EXAM: turgor normal Course 2 Vital Signs: Vital signs: Vital Signs Temperature 97.5 F L 03/03/24 20:25 Pulse Rate 81 03/03/24 23:22 Respiratory Rate 12 03/03/24 23:22 Blood Pressure 134/60 03/03/24 20:25 Pulse Oximetry 96 03/03/24 23:22 Oxygen Delivery Me thod Room Air 03/03/24 23:22 MDM - Chest Pain Medical Decision Making 88-year-old female brought in today by EMS for concerns of shortness of breath from [facility] correction. On arrival to the ER patient's pulse oxygen was mid 90s on room air. Lungs were clear to auscultation. Abdomen soft nontender. Patient has some edema to lower extremities +2 pitting. Abdomen soft nontender. Vital signs are normal. Differential diagnosis includes pneumonia, ACS, CHF. CMP noted a potassium of 2.6. Blood count showed a white blood cell count of 10,000 platelets were elevated at 600. First and second hour troponin were unchanged in the low 20s. Chest x-ray showed a small effusion in the right lung base. Patient's oxygen saturation was above 90% on room air. Patient denied any chest pain or discomfort at discharge. Patient be continued on potassium 20 mill equivalents daily and was sent back to correction. Lab Data 03/03/24 20:11 03/03/24 20:11 Radiology Impressions Chest X-Ray 03/03/24 20:32 IMPRESSION: 1. Small right-sided pleural effusion. If there is ongoing clinical concern, consider correlation with CT. Laboratory Results WBC 10.53 10^3/uL (3.29-11.43) 03/03/24 20:11 RBC 4.45 10^6/uL (3.85-5.65) 03/03/24 20:11 Hgb 12.50 g/dL (11.27-16.99) 03/03/24 20:11 Hct 39.4 % (36-47) 03/03/24 20:11 MCV 88.5 fl (85-98) 03/03/24 20:11 MCH 28.1 pg (27-33) 03/03/24 20:11 MCHC 31.7 g/dL (30-55) 03/03/24 20:11 RDW 13.0 % (12.1-15.1) 03/03/24 20:11 Plt Count 600 10^3/cmm (157-399) H 03/03/24 20:11 MPV 9.4 fL (7.4-10.4) 03/03/24 20:11 Neut % (Auto) 79.9 % 03/03/24 20:11 Lymph % (Auto) 11.3 % 03/03/24 20:11 [place] % (Auto) 6.2 % 03/03/24 20:11 Eos % (Auto) 0.7 % 03/03/24 20:11 Baso % (Auto) 1.4 % 03/03/24 20:11 Neut # (Auto) 8.42 10^3/uL (1.8-7.7) H 03/03/24 20:11 Lymph # (Auto) 1.2 10^3/uL (0.8-4.8) 03/03/24 20:11 [place] # (Auto) 0.7 10^3/uL (0.2-0.9) 03/03/24 20:11 Eos # (Auto) 0.1 10^3/uL (0.0-0.8) 03/03/24 20:11 Baso # (Auto) 0.2 10^3/uL (0.0-0.1) H 03/03/24 20:11 Nucleated RBC % (auto) 0 % 03/03/24 20:11 Nucleated RBCs # 0.0 /100WBC 03/03/24 20:11 Sodium 138 mmol/L (136-145) 03/03/24 20:11 Potassium 2.6 mmol/L (3.5-5.1) L* 03/03/24 20:11 Chloride 91 mmol/L (98-107) L 03/03/24 20:11 Carbon Dioxide 30 mmol/L (22-29) H 03/03/24 20:11 Anion Gap 19.6 (5-19) H 03/03/24 20:11 BUN 24 mg/dL (8-23) H 03/03/24 20:11 Creatinine 1.1 mg/dL (0.5-0.9) H 03/03/24 20:11 GFR Calculation Not Reportable 03/03/24 20:11 Glucose 140 mg/dL (65-115) H 03/03/24 20:11 Calculated Osmolality 292 mOsm/kg (285-295) 03/03/24 20:11 Calcium 9.3 mg/dL (8.5-10.5) 03/03/24 20:11 Total Bilirubin 0.5 mg/dL (0.15-1.2) 03/03/24 20:11 AST 15 U/L (0-32) 03/03/24 20:11 ALT 8 U/L (0-33) 03/03/24 20:11 Alkaline Phosphatase 105 U/L (35-105) 03/03/24 20:11 Troponin T Baseline 26 ng/L (0-10) H 03/03/24 20:11 Troponin T 120 Minute 24.20 ng/L (0-10) H 03/03/24 22:10 Delta Troponin T -1.80 ABS# (0-10) L 03/03/24 22:10 Total Protein 7.2 g/dL (6.6-8.7) 03/03/24 20:11 Albumin 3.7 g/dL (3.5-5.2) 03/03/24 20:11 Globulin 3.5 g/dL (1.3-4.6) 03/03/24 20:11 All radiology interpretation(s) finalized by discharge EKG Data EKG 1: EKG interpretation date: 03/03/24 EKG interpretation time: 21:00 Prior EKG tracings: not available for review Interpretation: EKG shows atrial fibs with a irregular rate at [address] elevations or ectopy otherwise is noted. No prior exam was available for comparison. EKG 2: EKG interpretation date: 03/03/24 EKG interpretation time: 22:45 Prior EKG tracings: available for review Interpretation: EKG shows a sinus rhythm with a regular rate at 76 bpm. Artifact is present on EKG. No ST elevation or ectopy is noted. Compared to prior exam atrial fibs is no longer present. Discharge Plan Discharge Patient Disposition: Home Clinical Impression: Acute hypokalemia Condition: Stable Prescriptions: New potassium chloride 20 mEq tablet extended release 20 meq PO DAILY Qty: 10 0RF No Action levothyroxine 75 mcg tablet 75 mcg PO QAM Qty: 30 11RF acetaminophen 325 mg capsule 325 mg PO QID PRN furosemide [Lasix] 20 mg tablet 20 mg PO DAILY Qty: 30 1RF Rx Instructions: Take 1 tab daily potassium chloride 8 mEq tablet extended release 8 meq PO DAILY Qty: 30 1RF Rx Instructions: Take 1 tab daily. hydrochlorothiazide 12.5 mg capsule 12.5 mg PO DAILY metoprolol tartrate 25 mg tablet 25 mg PO BID nystatin [Nyamyc] 100,000 unit/gram powder 1 applic topical BID hydrocodone-acetaminophen 7.5-325 mg tablet 1 tab PO BEDTIME 30 Days Qty: 120 0RF Rx Instructions: SOMETIMES WILL TAKES ONE TAB IN AM AND 1 TAB HS fentanyl 12 mcg/hr patch 72 hour 1 patch transdermal Q72H 30 Days Qty: 10 0RF pantoprazole 40 mg Tablet,Delayed Release (Dr/Ec) 40 mg PO DAILY Qty: 30 0RF ferrous sulfate 325 mg (65 mg iron) Tablet,Delayed Release (Dr/Ec) 325 mg PO BID Qty: 30 0RF clopidogrel 75 mg Tablet 75 mg PO DAILY Qty: 30 0RF aspirin 81 mg Tablet,Delayed Release (Dr/Ec) 81 mg PO DAILY Qty: 30 0RF Discharge Orders: Discharge ED (Routine); Ordered 03/03/24 Ordered By: Cesar Roach Referrals: Mk Agudelo MD [Primary Care Provider] - Discharge Diet: Usual diet Patient Instructions: Hypokalemia (ED) Activity Restrictions/Additional Instructions: Hold 8 mEq potassium and give 20 mEq of potassium daily. Continue with routine medications otherwise as directed. Follow-up with primary care for further instructions. Return to ED for new concerns. Coding Level of Care Code [employer] Consultant for Watson Buckley
--- NOTE | 2024-03-03 20:32 | XRR_ITS ---
PROCEDURE INFORMATION: Exam: XR Chest Exam date and time: 03/03/2024 8:59 PM Age: 88 years old Clinical indication: Shortness of breath; Chest pressure; Patient HX: RT lower chest pain with SOB TECHNIQUE: Imaging protocol: Radiologic exam of the chest. Views: 1 view. COMPARISON: CR XR chest 2V* [id number] 05/03/2023 3:54 PM FINDINGS: Lungs: No focal consolidation. Pleural spaces: No evidence of pneumothorax. Small right-sided pleural effusion. Heart/Mediastinum: Cardiomediastinal silhouette is distorted by patient rotation. Bones/joints: No evidence of acute osseous abnormality. XR/XR chest 1V portable [id number] IMPRESSION: 1. Small right-sided pleural effusion. If there is ongoing clinical concern, consider correlation with CT.
[2024-03-03 20:43] LABS: Basophils # 0.2 10^3/uL (0.0-0.1); Basophils % 1.4 %; Eosinophils # 0.1 10^3/uL (0.0-0.8); Eosinophils % 0.7 %; Hematocrit 39.4 % (36-47); Lymphocytes # 1.2 10^3/uL (0.8-4.8); Lymphocytes % 11.3 %; Mean Corpuscular HGB Conc 31.7 g/dL (30-55); Mean Corpuscular Hemoglobin 28.1 pg (27-33); Mean Corpuscular Volume 88.5 fl (85-98); Mean Platelet Volume 9.4 fL (7.4-10.4); Monocytes # 0.7 10^3/uL (0.2-0.9); Monocytes % 6.2 %; Neutrophils # 8.42 10^3/uL (1.8-7.7); Neutrophils % 79.9 %; Nucleated Red Blood Cells % 0 %; Platelet Count 600 10^3/cmm (157-399); Red Blood Count 4.45 10^6/uL (3.85-5.65); White Blood Count 10.53 10^3/uL (3.29-11.43)
--- NOTE | 2024-03-03 20:58 | ECG_ITS ---
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 Measurements Intervals [place] Rate: 87 P: 0 NV: 0 QRS: 94 QRSD: 110 T: 82 QT: 391 QTc: 472 Interpretive Statements ATRIAL FIBRILLATION BORDERLINE RIGHT AXIS DEVIATION [QRS AXIS > 90] POSSIBLE LATERAL MYOCARDIAL INFARCTION , PROBABLY OLD [30 ms Q WAVE IN I/aVL/V5/V6] INFERIOR MYOCARDIAL INFARCTION , PROBABLY OLD [40+ ms Q WAVE AND/OR ST/T ABNORMALITY IN II/aVF] Compared to ECG 04/09/2023 05:02:21 Sinus rhythm no longer present Sinus arrhythmia no longer present Incomplete right bundle-branch block no longer present ST (T wave) deviation no longer present Myocardial infarct finding still present Electronically Signed On 03-04-2024 11:08:52 CDT by Selvin Patel M.D. [email or web address]
[2024-03-03 21:13] LABS: Alanine Aminotransferase 8 U/L (0-33); Albumin Level 3.7 g/dL (3.5-5.2); Alkaline Phosphatase 105 U/L (35-105); Anion Gap 19.6 (5-19); Aspartate Amino Transferase 15 U/L (0-32); Blood Urea Nitrogen 24 mg/dL (8-23); Calcium 9.3 mg/dL (8.5-10.5); Carbon Dioxide 30 mmol/L (22-29); Chloride 91 mmol/L (98-107); Creatinine Clr Calc Pharmacy 35.2046; Globulin 3.5 g/dL (1.3-4.6); Glucose 140 mg/dL (65-115); Osmolality Calculated 292 mOsm/kg (285-295); Sodium 138 mmol/L (136-145); Total Bilirubin 0.5 mg/dL (0.15-1.2); Total Protein 7.2 g/dL (6.6-8.7); Troponin(5th) Baseline 26 ng/L (0-10)
[2024-03-03 21:15] LABS: Potassium 2.6 mmol/L (3.5-5.1)
[2024-03-03] MEDS: potassium chloride oral liq 20 mEq/15 mL UDC 40 MEQ PO (21:42)
[2024-03-03] MEDS: lidocaine 1% 5 ML in potassium chloride premix 100 ML 52.5 ML IV (21:43)
--- NOTE | 2024-03-03 22:32 | ECG_ITS ---
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 Measurements Intervals [place] Rate: 76 P: 45 [place]: 199 QRS: 88 QRSD: 94 T: 27 QT: 354 QTc: 400 Interpretive Statements SINUS RHYTHM POSSIBLE INFERIOR MYOCARDIAL INFARCTION , OF INDETERMINATE AGE [30 ms Q WAVE IN II/aVF] Compared to ECG 03/03/2024 20:58:07 Atrial fibrillation no longer present Myocardial infarct finding still present Electronically Signed On 03-04-2024 11:17:28 CDT by Selvin Patel M.D. [id number]
[2024-03-03 23:22] VITALS: PULSE 81; RESP 12; O2SAT 96
[2024-03-03] MEDS: alum-mag-hydroxide-sime 30 mL UDC PO (23:26)
[2024-03-04 00:16] VITALS: PULSE 85; RESP 28; O2SAT 97
[2024-03-04 00:50] VITALS: BP 97/51; PULSE 76; RESP 15; O2SAT 96
[2024-03-04 05:21] VITALS: BP 96/46; RESP 16; O2SAT 94
== END 2024-03-04 05:23 | disposition home or self-care (01) ==
PROVIDERS: Emergency Provider Nurse Practitioner Family; PCP Family Medicine
DX: E87.6 Hypokalemia (principal); Z79.02 Long term (current) use of antithrombotics/antiplatelets; Z79.82 Long term (current) use of aspirin; I10 Essential (primary) hypertension
CPT/HCPCS: 36415; 71045; 80053; 84484; 85025; 93005; 96374; 99285; J3480